=== PATIENT | female | born 1935 | race Caucasian/White ===

== ENCOUNTER 2017-05-06 10:03 | Inpatient (IN) | payer MEDICARE, BC, MEDICAID ==
[2017-05-06 11:02] LABS: #Lymphocytes 1.4 thou/uL (1.20-3.40); #Neutrophils 9.2 thou/uL (1.40-6.50); %Basophils 0.3 % (0.0-1.0); %Eosinophils 0.2 % (0.0-10.0); %Lymphocytes 11.8 % (21.0-51.0); %Monocytes 8.5 % (0.0-10.0); %Neutrophils 79.2 % (42.0-75.0); Hemoglobin 13.9 g/dL (12.0-16.0); Mean Corpuscular HGB CONC 31.4 g/dL (32.0-36.0); Mean Corpuscular Hemoglobin 28.8 pg (27.0-31.0); Mean Corpuscular Volume 91.8 fl (81.0-99.0); Mean Platelet Volume 7.9 fL (7.4-10.4); Platelet Count 253 thou/uL (130-400); RBC Distribution Width 14.2 % (11.5-14.5); Red Blood Cell (RBC) Count 4.82 mill/uL (4.20-5.40); White Blood Cell (WBC) Count 11.6 thou/uL (4.8-10.8)
[2017-05-06 11:11] LABS: Bilirubin Negative (Negative); Blood, Urine Trace (Negative); Clarity Cloudy (Clear); Glucose, Urine (Dipstick) Negative (Negative); Leukocyte Moderate (Negative); Nitrite Positive (Negative); Protein, Urine (Dipstick) 30 mg/dL (Neg-Trace); Urobilinogen 0.2 mg/dL (0.2-1.0); pH, Urine 7.5 (5.0-9.0)
[2017-05-06 11:20] LABS: Anion Gap 16 mmol/L (10-20); BUN (Urea Nitrogen) 21 mg/dL (9.8-20.1); CK (CPK) 26 U/L (29-168); Calc. Creatinine Clearance 0 mL/min (70-130); Calcium 11.3 mg/dL (7.8-10.44); Carbon Dioxide 29 mmol/L (23-31); Chloride 101 mmol/L (98-107); Estimated GFR-MDRD 49; Glucose 124 mg/dL (83-110); Potassium 3.6 mmol/L (3.5-5.1); Sodium 142 mmol/L (136-145)
[2017-05-06 11:23] LABS: CKMB 1.4 ng/mL (0-6.6); Troponin I 0.033 ng/mL (< 0.028)
[2017-05-06 11:25] LABS: Bacteria/HPF 4+ HPF (None Seen); Crystals/HPF 1+ AMORPH PHOS HPF (Negative); Hyaline Casts/LPF NONE SEEN LPF (0-3 Hyaline); Squamous Epithelial 0-3 HPF (0-3)
--- NOTE | 2017-05-06 11:37 | RAD ---
RADIOGRAPH CHEST 1 VIEW: HISTORY: An 82-year-old female with lethargy. FINDINGS: There is cardiomegaly. The thoracic aorta is tortuous and ectatic. There is no evidence of air space density, pulmonary edema, or pneumothorax. The lateral costophrenic angles are sharp. There is a d ual-lead left subclavian pacemaker. Pulmonary vasculature is slightly prominent. IMPRESSION: 1) No acute pulmonary findings. 2) Cardiomegaly without overt congestive heart failure. 3) Ectasia of thoracic aorta. 4) Pacemaker. yaima [r] POS: [facility]
[2017-05-06] MEDS ORDERED: cefTRIAXone\\ROCEPHIN 1 GM, Syringe 0.4 ML in Sterile Water 9.6 ML SLOW IVP SCH (12:30)
[2017-05-06] MEDS ORDERED: Oseltamivir 75 MG CAP PO SCH (12:30)
[2017-05-06 15:28] LABS: Lactic Acid 1.4 mmol/L (0.5-2.2)
[2017-05-06 15:36] LABS: Troponin I 0.051 ng/mL (< 0.028)
[2017-05-06] MEDS ORDERED: hydrALAZINE 20 MG/ML VIAL ONE (15:56)
[2017-05-06] MEDS ORDERED: HYDROcodone/Acetaminophen 5/325 mg Tablet PO PRN (16:43)
[2017-05-06] MEDS ORDERED: Chloraseptic Spray 180 ml Bottle PO PRN (16:43)
[2017-05-06] MEDS ORDERED: Ondansetron HCl/PF 4 MG/2 ML Vial IVP PRN (16:43)
[2017-05-06] MEDS ORDERED: hydrALAZINE 20 MG/ML VIAL SLOW IVP PRN (16:43)
[2017-05-06] MEDS ORDERED: Zolpidem Tartrate 5 MG TAB PO PRN (16:43)
[2017-05-06] MEDS ORDERED: Acetaminophen 325 MG TAB PO PRN (16:43)
[2017-05-06] MEDS ORDERED: Loperamide HCl 2 MG CAP PO PRN (16:43)
[2017-05-06] MEDS ORDERED: Guaifenesin DM 100-10/5 ML UDCUP PO PRN (16:43)
[2017-05-06] MEDS ORDERED: Milk Of Magnesia 30 ML UDCUP PO PRN (16:43)
[2017-05-06] MEDS ORDERED: cefTRIAXone\\ROCEPHIN 1 GM in Sodium Chloride 0.9% 100 ML IVPB SCH (16:43)
[2017-05-06 17:56] LABS: Troponin I 0.037 ng/mL (< 0.028)
[2017-05-06] MEDS: Oseltamivir 75 MG CAP PO SCH (20:48)
[2017-05-06] MEDS: Donepezil HCl 10 MG TAB PO SCH (20:49)
[2017-05-06] MEDS: Metoprolol Tartrate 100 MG TAB PO SCH (20:49)
[2017-05-06] MEDS: Famotidine 20 MG TAB PO SCH (20:49)
--- NOTE | 2017-05-06 23:12 | HP ---
DATE OF ADMISSION: 05/06/2017 REASON FOR ADMISSION: Altered mental status. PRIMARY CARE PHYSICIAN: Dr. Soniya Alanis. HISTORY OF PRESENT ILLNESS: This is an 82-year-old female with a history of CHF, peripheral vascular disease, hypertension, skin cancer, who came to the hospital with altered mentation. No family memb er is available. She was transferred from a snf with the above complaints and patient was e valuated. The patient cannot give history. She was found to have pyuria and possible UTI and starte d on antibiotics. She was also flu positive and is being admitted to the hospital. Patient last paddy e was discharged from the hospital and was DNR per the previous records. PAST MEDICAL HISTORY: Positive for hypertension, skin cancer, peripheral vascular disease, CHF, and iron deficiency anemia, osteoporosis, dementia. PAST SURGICAL HISTORY: Hysterectomy. HOME MEDICATIONS: Aspirin 81 mg daily, Claritin 10 mg daily, ferrous sulfate 325 once a day, Lasix 4 0 mg daily, 60 mg once a day, vitamin D3 1000 units 1 p.o. daily, cilostazol 100 mg mg b.i.d. ALLERGIES: No known drug allergies. SOCIAL HISTORY: She lives in a snf. Past history of tobacco use. No alcohol or illicit dr ug abuse. No tobacco use currently. FAMILY HISTORY: No history of any kidney disease. REVIEW OF SYSTEMS: Could not be obtained due to altered mentation and possible dementia. PHYSICAL EXAMINATION: GENERAL: Elderly female, very lethargic. VITAL SIGNS: Temperature 99.6, pulse 90, respirations 20, blood pressure 177/104. HEENT: Atraumatic, normocephalic. NECK: Supple. . CARDIOVASCULAR: S1, S2 heard. RESPIRATORY: Clear. ABDOMEN: Soft. MUSCULOSKELETAL: No tenderness. No edema. DERMATOLOGIC: . NEUROLOGIC: Somnolent and unresponsive. PSYCHIATRIC: Not assessed. LABORATORY AND X-RAY FINDINGS: WBC 11.6, hemoglobin is 13.9, platelets 253, potassium 3.6, BUN 21, c reatinine 1.2, troponin I 0.03. Urine with pyuria. Chest x-ray was unremarkable. No acute pulmonar y . ASSESSMENT AND PLAN: 1. Altered mentation, most likely from urinary tract infection . Plan is to start on Rocephin. Check urine culture, blood culture, and we will follow. 2. History of congestive heart failure. No acute events. We will continue on Lasix p.o. daily if t olerated. 3. Edema, controlled. 4. Hypertension, stable, continue home medications. 5. Influenza A. Continue on Tamiflu 75 mg p.o. b.i.d. 6. Mild leukocytosis. 7. Elevated BNP, most likely she does have elevated BNP. Chest x-ray with no acute findings. 8. Mildly elevated troponin. 9. Dementia. 10. Code status: DNR/DNI per previous records, made clarification. 11. Selected home medications. 12. P.r.n. order set. The patient will be admitted for close monitoring and continue antibiotics. Further decisions will b e made based on the clinical course.
[2017-05-07 05:22] LABS: #Lymphocytes 1.3 thou/uL (1.20-3.40); #Monocytes 1.1 thou/uL (0.11-0.59); #Neutrophils 6.4 thou/uL (1.40-6.50); %Basophils 0.2 % (0.0-1.0); %Eosinophils 0.1 % (0.0-10.0); %Lymphocytes 14.5 % (21.0-51.0); %Monocytes 12.9 % (0.0-10.0); %Neutrophils 72.4 % (42.0-75.0); Mean Corpuscular HGB CONC 31.4 g/dL (32.0-36.0); Mean Corpuscular Hemoglobin 28.7 pg (27.0-31.0); Mean Corpuscular Volume 91.6 fl (81.0-99.0); Mean Platelet Volume 8.5 fL (7.4-10.4); Platelet Count 230 thou/uL (130-400); RBC Distribution Width 14.2 % (11.5-14.5); Red Blood Cell (RBC) Count 4.53 mill/uL (4.20-5.40); White Blood Cell (WBC) Count 8.9 thou/uL (4.8-10.8)
[2017-05-07 05:34] LABS: Anion Gap 14 mmol/L (10-20); BUN (Urea Nitrogen) 28 mg/dL (9.8-20.1); Calc. Creatinine Clearance 31 mL/min (70-130); Calcium 10.9 mg/dL (7.8-10.44); Carbon Dioxide 32 mmol/L (23-31); Chloride 103 mmol/L (98-107); Estimated GFR-MDRD 45; Glucose 113 mg/dL (83-110); Potassium 3.5 mmol/L (3.5-5.1); Sodium 145 mmol/L (136-145)
[2017-05-07] MEDS ORDERED: Furosemide 40 MG TAB PO SCH (07:30)
[2017-05-07] MEDS ORDERED: FLU VACC TS2017-18 (>65YR) 0.5 ML SYRINGE IM ONE (09:00)
[2017-05-07] MEDS: Enoxaparin Sodium 30 MG/0.3 ML SYRINGE SC SCH (10:04)
[2017-05-07] MEDS: Famotidine 20 MG TAB PO SCH ×2 (10:04→21:43)
[2017-05-07] MEDS: Oseltamivir 75 MG CAP PO SCH ×2 (10:05→21:44)
[2017-05-07] MEDS: Aspirin 81 mg Enteric Coated Tablet PO SCH (10:05)
[2017-05-07] MEDS: Metoprolol Tartrate 100 MG TAB PO SCH ×2 (10:05→21:43)
--- NOTE | 2017-05-07 11:28 | PDOC.PN ---
- Subjective Encounter Start Date: 05/07/17 Encounter Start Time: 11:26 Patient seen and examined. No new complaints. No overnight events. more alert today. - Objective Resuscitation Status: Resuscitation Status DNR:Do Not Resuscitate MAR Reviewed: Yes Vital Signs & Weight: Vital Signs (12 hours) Temp Pulse Resp BP Pulse Ox 05/07/17 07:15 98.2 F 70 14 143/94 H 94 L 05/07/17 04:49 98.4 F 64 16 117/74 98 05/07/17 00:24 99.8 F H 64 16 121/77 96 Weight Weight 119 lb 14.903 oz I&O: 05/06/17 05/07/17 05/08/17 06:59 06:59 06:59 Intake Total 100 Balance 100 Result Diagrams: 05/07/17 04:44 05/07/17 04:44 Phys Exam - Physical Examination Constitutional: NAD HEENT: sclera anicteric Neck: supple Respiratory: no wheezing, no rales Cardiovascular: RRR Gastrointestinal: soft Musculoskeletal: no edema Neurological: non-focal Deviation from normal: lethargic but better Skin: no rash Dx/Plan (1) Flu Code(s): J11.1 - FLU DUE TO UNIDENTIFIED INFLUENZA VIRUS W OTH RESP MANIFEST Status: Acute (2) Altered mental status Code(s): R41.82 - ALTERED MENTAL STATUS, UNSPECIFIED Status: Acute (3) RICK (acute kidney injury) Code(s): N17.9 - ACUTE KIDNEY FAILURE, UNSPECIFIED Status: Acute (4) UTI (urinary tract infection) Status: Acute Qualifiers: - Plan cont current plan of care, continue antibiotics, PT/OT, DVT proph w/lovenox * . continue rocephin more alert today f/u culture continue tamiflu stop lasix gentle hydration AM labs.
[2017-05-07] MEDS ORDERED: Sodium Chloride 0.9% 500 ML IV SCH (11:30)
[2017-05-07] MEDS ORDERED: cefTRIAXone\\ROCEPHIN 1 GM, Syringe 0.4 ML in Sterile Water 9.6 ML SLOW IVP SCH (14:00)
[2017-05-07] MEDS: Donepezil HCl 10 MG TAB PO SCH (21:43)
[2017-05-07 23:13] VITALS: BMI 21.2
[2017-05-08 06:21] LABS: #Basophils 0.1 thou/uL (0.0-0.2); #Eosinphils 0.1 thou/uL (0.0-0.7); #Lymphocytes 1.8 thou/uL (1.20-3.40); #Monocytes 0.8 thou/uL (0.11-0.59); #Neutrophils 3.6 thou/uL (1.40-6.50); %Basophils 1.3 % (0.0-1.0); %Eosinophils 1.2 % (0.0-10.0); %Lymphocytes 27.9 % (21.0-51.0); %Monocytes 13.1 % (0.0-10.0); %Neutrophils 56.6 % (42.0-75.0); Hemoglobin 12.2 g/dL (12.0-16.0); Mean Corpuscular HGB CONC 31.5 g/dL (32.0-36.0); Mean Corpuscular Volume 92.1 fl (81.0-99.0); Mean Platelet Volume 8.5 fL (7.4-10.4); Platelet Count 209 thou/uL (130-400); RBC Distribution Width 14.1 % (11.5-14.5); Red Blood Cell (RBC) Count 4.22 mill/uL (4.20-5.40); White Blood Cell (WBC) Count 6.3 thou/uL (4.8-10.8)
[2017-05-08 06:34] LABS: Anion Gap 11 mmol/L (10-20); BUN (Urea Nitrogen) 26 mg/dL (9.8-20.1); Calc. Creatinine Clearance 42 mL/min (70-130); Calcium 10.1 mg/dL (7.8-10.44); Carbon Dioxide 30 mmol/L (23-31); Chloride 102 mmol/L (98-107); Estimated GFR-MDRD 64; Glucose 86 mg/dL (83-110); Potassium 3.1 mmol/L (3.5-5.1); Sodium 140 mmol/L (136-145)
[2017-05-08] MEDS: Famotidine 20 MG TAB PO SCH ×2 (09:03→22:17)
[2017-05-08] MEDS: Oseltamivir 75 MG CAP PO SCH ×2 (09:03→22:17)
[2017-05-08] MEDS: Aspirin 81 mg Enteric Coated Tablet PO SCH (09:03)
[2017-05-08] MEDS: Metoprolol Tartrate 100 MG TAB PO SCH ×2 (09:04→22:17)
[2017-05-08] MEDS: Enoxaparin Sodium 30 MG/0.3 ML SYRINGE SC SCH (09:04)
[2017-05-08] MEDS ORDERED: Meropenem 1 GM in Sodium Chloride 0.9% 100 ML IVPB SCH (13:00)
[2017-05-08] MEDS ORDERED: Meropenem 1 GM in Sterile Water 20 ML SLOW IVP SCH (14:00)
--- NOTE | 2017-05-08 17:04 | PDOC.PN ---
- Subjective Encounter Start Date: 05/08/17 Encounter Start Time: 17:02 more alert and awake eating no f/c no n/v - Objective Resuscitation Status: Resuscitation Status DNR:Do Not Resuscitate MAR Reviewed: Yes Vital Signs & Weight: Vital Signs (12 hours) Temp Pulse Resp BP Pulse Ox 05/08/17 15:50 59 L 05/08/17 15:00 98.1 F 44 L 15 139/61 96 05/08/17 11:00 98.1 F 60 18 144/95 H 94 L 05/08/17 07:46 98.2 F 59 L 16 135/53 L 97 05/08/17 07:45 98.2 F 59 L 16 97 Weight Weight 119 lb 14.903 oz I&O: 05/07/17 05/08/17 05/09/17 06:59 06:59 06:59 Intake Total 100 1000 Balance 100 1000 Result Diagrams: 05/08/17 05:15 05/08/17 05:15 Phys Exam - Physical Examination Constitutional: NAD HEENT: PERRLA Neck: no JVD Respiratory: no rales Cardiovascular: no significant murmur Gastrointestinal: non-tender Musculoskeletal: pulses present Neurological: moves all 4 limbs Psychiatric: A&O x 3 Dx/Plan (1) Altered mental status Code(s): R41.82 - ALTERED MENTAL STATUS, UNSPECIFIED Status: Acute (2) Flu Code(s): J11.1 - FLU DUE TO UNIDENTIFIED INFLUENZA VIRUS W OTH RESP MANIFEST Status: Acute (3) RICK (acute kidney injury) Code(s): N17.9 - ACUTE KIDNEY FAILURE, UNSPECIFIED Status: Acute (4) Tachycardia Code(s): R00.0 - TACHYCARDIA, UNSPECIFIED Status: Resolved Comment: ECHO shows preserved EF (5) UTI (urinary tract infection) Status: Acute Qualifiers: Comment: proteus - Plan * replace potassium * consult dr vega for rec's on duration of treatement * start merropenem * pt/ot
--- NOTE | 2017-05-08 17:06 | PQF ---
CLINICAL DOCUMENTATION IMPROVEMENT CLARIFICATION FORM: ICD-10 Updated PLEASE DO AN ADDENDUM TO THE PROGRESS NOTE WITH ANY DOCUMENTATION UPDATES OR ADDITIONS AND CARRY THROUGH TO DC SUMMARY. THANK YOU. DATE: 05/08/17 ATTN: Dr. Moreno Please exercise your independent, professional judgment in responding to the clarification form. Clinical indicators are provided on the bottom of this form for your review Please check appropriate box(s): [ ] Encephalopathy: Type: [ ] Acute [ ] Subacute [ ] Chronic Etiology: [ ] Metabolic [ ] Toxic [ ] Septic [ ] Unspecified [ ] in the setting of underlying dementia [ ] Other (please specify) [ ] Other diagnosis [ ] Unable to determine In addition, please specify: Present on Admission (POA): [ ] Yes [ ] No [ ] Unable to determine For continuity of documentation, please document condition throughout progress notes and discharge summary. Thank You. CLINICAL INDICATORS - SIGNS / SYMPTOMS / LABS H&P: ALTERED MENTATION, MOST LIKELY FROM URINARY TRACT INFECTION. PN 05/07/17: DX: FLU AMS RICK UTI MORE ALERT TODAY RISKS: H&P: AGE 82. LIVES IN A SHELTER. INFLUENZA A. DEMENTIA. HX OF CHF, HTN. MILD LEUKOCYTOSIS. TREATMENT: PN 05/07/17: CONTINUE ROCEPHIN; F/U CULTURE; CONTINUE TAMIFLU Thank you, Nila (This form is maintained as a part of the permanent medical record) 2015 [employer]. All Rights Reserved Nila Rowe RN, BSN [email or web address] Office: [phone] [facility]
[2017-05-08] MEDS: Potassium Chloride 20 MEQ TAB PO SCH (17:18)
--- NOTE | 2017-05-08 17:41 | CON ---
DATE OF CONSULTATION: 05/08/2017 REASON FOR CONSULTATION: UTI, influenza. HISTORY OF PRESENT ILLNESS: An 82-year-old whom I had seen in 2016, has a history of hypertension an d dementia. She has been [facility] to a jail because of her dementia progression. She has michaels d a history of prior UTIs and this time she was admitted with altered mental status and influenza zhang t was positive for A and she also had abnormal urinalysis and is on anti-influenza medication and ant ibiotics. She is disoriented, is a very pleasant lady, but her cognitive functions really not consis tent with a proper history taking. She denied any pain at this point or dyspnea, coughing intermitte ntly. No abdominal pain, no genitourinary symptoms, no joint symptoms. PAST MEDICAL HISTORY: Prior UTIs, PVD, CHF, anemia, osteoporosis, dementia, hypertension. PAST SURGICAL HISTORY: Hysterectomy. CURRENT MEDICATIONS: Tylenol, [place], Ecotrin, Aricept, Lovenox, Pepcid, Robitussin, Apresoline, lact ulose, Imodium, meropenem, oseltamivir, zolpidem. SOCIAL HISTORY: Former smoker, quit just 3 years before this admission. ALLERGIES: None. FAMILY HISTORY: Noncontributory. PHYSICAL EXAMINATION: VITAL SIGNS: She has been afebrile after the initial low grade temperature elevations. BP 140/95, p ulse 60, respiratory rate 18, O2 sat 94. GENERAL: She appears in no distress. Awake, alert, oriented. No lymphadenopathy. HEENT: Ocular movements are conjugate. Oral cavity with no [place] teeth. NECK: Supple. LUNGS: With coarse breath sounds. HEART: S1 and S2, regular rate. ABDOMEN: Soft, not distended. EXTREMITIES: Moves all extremities equally. No bladder distention. EXTREMITIES: Pulses are 1+ in internal dorsalis pedis. NEUROLOGIC: Plantar responses are flexure. LABORATORY DATA: White cell count was 11.6, down to 6.3. Hemoglobin 13, platelets 209 with neutroph il percentage was 79, down to 56. Sodium was 145 and now 140. Creatinine down from 1.16 to 0.85, ca lcium is down from 10.9 to 10.1. Urinalysis with greater than 50 WBCs. Chest x-ray on admission wit h pacemaker, ectasia of thoracic aorta, no acute pulmonary findings, cardiomegaly. ASSESSMENT: Dementia associated with deterioration in mental status secondary to likely acute influe nza viral infection type A which is the epidemic strain circulating in the area. The urinary tract f indings could reflect colonization plus some element of cystitis. Should be able to discontinue anti microbial therapy and just continue the Tamiflu for the next 3-4 days . I do not see any obvious dinh dence of pneumonia at this point in time.
[2017-05-08] MEDS: Donepezil HCl 10 MG TAB PO SCH (22:16)
[2017-05-09 05:42] LABS: #Basophils 0.1 thou/uL (0.0-0.2); #Lymphocytes 1.7 thou/uL (1.20-3.40); #Monocytes 0.6 thou/uL (0.11-0.59); #Neutrophils 3.7 thou/uL (1.40-6.50); %Basophils 1.3 % (0.0-1.0); %Eosinophils 0.6 % (0.0-10.0); %Lymphocytes 27.2 % (21.0-51.0); %Monocytes 9.8 % (0.0-10.0); %Neutrophils 61.1 % (42.0-75.0); Hemoglobin 12.8 g/dL (12.0-16.0); Mean Corpuscular HGB CONC 32.4 g/dL (32.0-36.0); Mean Corpuscular Hemoglobin 29.7 pg (27.0-31.0); Mean Corpuscular Volume 91.5 fl (81.0-99.0); Platelet Count 245 thou/uL (130-400); RBC Distribution Width 14.3 % (11.5-14.5); Red Blood Cell (RBC) Count 4.31 mill/uL (4.20-5.40); White Blood Cell (WBC) Count 6.1 thou/uL (4.8-10.8)
[2017-05-09 06:17] LABS: Albumin 3.4 g/dL (3.4-4.8); Anion Gap 11 mmol/L (10-20); BUN (Urea Nitrogen) 27 mg/dL (9.8-20.1); BUN/Creatinine Ratio 32.14; Calc. Creatinine Clearance 43 mL/min (70-130); Calcium 10.5 mg/dL (7.8-10.44); Carbon Dioxide 29 mmol/L (23-31); Chloride 105 mmol/L (98-107); Estimated GFR-MDRD 65; Glucose 96 mg/dL (83-110); Sodium 141 mmol/L (136-145)
[2017-05-09] MEDS: Oseltamivir 75 MG CAP PO SCH ×2 (08:28→21:03)
[2017-05-09] MEDS: Aspirin 81 mg Enteric Coated Tablet PO SCH (08:28)
[2017-05-09] MEDS: Famotidine 20 MG TAB PO SCH ×2 (08:29→21:03)
[2017-05-09] MEDS: Potassium Chloride 20 MEQ TAB PO SCH ×2 (08:29→17:16)
[2017-05-09] MEDS: Enoxaparin Sodium 30 MG/0.3 ML SYRINGE SC SCH (08:30)
[2017-05-09] MEDS ORDERED: Metoprolol Tartrate 25 MG TAB PO SCH (09:45)
[2017-05-09] MEDS: Metoprolol Tartrate 100 MG TAB PO SCH (09:56)
--- NOTE | 2017-05-09 11:58 | PDOC.PN ---
- Subjective Encounter Start Date: 05/09/17 Encounter Start Time: 11:56 Patient seen and examined. No new complaints. No overnight events - Objective Resuscitation Status: Resuscitation Status DNR:Do Not Resuscitate MAR Reviewed: Yes Vital Signs & Weight: Vital Signs (12 hours) Temp Pulse Resp BP BP Pulse Ox 05/09/17 07:57 97.7 F 59 L 12 127/92 H 95 05/09/17 07:50 97.7 F 59 L 12 95 05/09/17 04:44 98.8 F 60 16 133/69 144/82 H 95 05/09/17 00:03 98.6 F 55 L 16 145/87 H 98 Weight Weight 119 lb 14.903 oz I&O: 05/08/17 05/09/17 05/10/17 06:59 06:59 06:59 Intake Total 1000 1050 Balance 1000 1050 Result Diagrams: 05/09/17 04:54 05/09/17 04:54 Phys Exam - Physical Examination Constitutional: NAD HEENT: PERRLA Neck: no JVD Cardiovascular: no significant murmur Gastrointestinal: non-tender Musculoskeletal: pulses present Neurological: moves all 4 limbs Psychiatric: A&O x 3 Dx/Plan (1) Altered mental status Code(s): R41.82 - ALTERED MENTAL STATUS, UNSPECIFIED Status: Acute Comment: metabolic encephalopathy (2) Flu Code(s): J11.1 - FLU DUE TO UNIDENTIFIED INFLUENZA VIRUS W OTH RESP MANIFEST Status: Acute (3) RICK (acute kidney injury) Code(s): N17.9 - ACUTE KIDNEY FAILURE, UNSPECIFIED Status: Acute (4) Tachycardia Code(s): R00.0 - TACHYCARDIA, UNSPECIFIED Status: Resolved Comment: ECHO shows preserved EF (5) UTI (urinary tract infection) Status: Acute Qualifiers: Comment: proteus - Plan * continue tamiflu * dr vega rec's appreicated * pt/ot * case mx to help with dc planning
[2017-05-09] MEDS: Metoprolol Tartrate 25 MG TAB PO SCH (21:03)
[2017-05-09] MEDS: Donepezil HCl 10 MG TAB PO SCH (21:03)
[2017-05-10] MEDS: Metoprolol Tartrate 25 MG TAB PO SCH ×2 (09:21→20:58)
[2017-05-10] MEDS: Aspirin 81 mg Enteric Coated Tablet PO SCH (09:21)
[2017-05-10] MEDS: Enoxaparin Sodium 30 MG/0.3 ML SYRINGE SC SCH (09:21)
[2017-05-10] MEDS: Famotidine 20 MG TAB PO SCH ×2 (09:21→20:58)
[2017-05-10] MEDS: Oseltamivir 75 MG CAP PO SCH ×2 (09:22→20:58)
--- NOTE | 2017-05-10 14:56 | PDOC.PN ---
- Subjective Encounter Start Date: 05/10/17 Encounter Start Time: 14:55 Patient seen and examined. No new complaints. No overnight events - Objective Resuscitation Status: Resuscitation Status DNR:Do Not Resuscitate MAR Reviewed: Yes Vital Signs & Weight: Vital Signs (12 hours) Temp Pulse Resp BP Pulse Ox 05/10/17 11:55 97.6 F 60 14 142/84 H 96 05/10/17 08:00 97.6 F 60 12 97 05/10/17 07:59 97.6 F 60 12 156/90 H 97 05/10/17 04:00 98 F 60 16 147/88 H 97 Weight Weight 119 lb 14.903 oz I&O: 05/09/17 05/10/17 05/11/17 06:59 06:59 06:59 Intake Total 1050 950 Balance 1050 950 Result Diagrams: 05/09/17 04:54 05/09/17 04:54 Phys Exam - Physical Examination Constitutional: NAD HEENT: PERRLA Neck: no JVD Respiratory: no wheezing Cardiovascular: no significant murmur Gastrointestinal: non-tender Musculoskeletal: pulses present Neurological: normal sensation Psychiatric: A&O x 3 Dx/Plan (1) Altered mental status Code(s): R41.82 - ALTERED MENTAL STATUS, UNSPECIFIED Status: Resolved Comment: metabolic encephalopathy (2) Flu Code(s): J11.1 - FLU DUE TO UNIDENTIFIED INFLUENZA VIRUS W OTH RESP MANIFEST Status: Acute (3) RICK (acute kidney injury) Code(s): N17.9 - ACUTE KIDNEY FAILURE, UNSPECIFIED Status: Acute (4) Tachycardia Code(s): R00.0 - TACHYCARDIA, UNSPECIFIED Status: Resolved Comment: ECHO shows preserved EF (5) UTI (urinary tract infection) Status: Acute Qualifiers: Comment: proteus - Plan * doing better * possible d/c to [place] in am
[2017-05-10] MEDS: Donepezil HCl 10 MG TAB PO SCH (20:58)
[2017-05-11] MEDS: Aspirin 81 mg Enteric Coated Tablet PO SCH (08:43)
[2017-05-11] MEDS: Metoprolol Tartrate 25 MG TAB PO SCH (08:43)
[2017-05-11] MEDS: Oseltamivir 75 MG CAP PO SCH (08:43)
[2017-05-11] MEDS: Enoxaparin Sodium 30 MG/0.3 ML SYRINGE SC SCH (08:43)
[2017-05-11] MEDS: Famotidine 20 MG TAB PO SCH (08:43)
--- NOTE | 2017-05-11 11:25 | PDOC.PN ---
- Subjective Encounter Start Date: 05/11/17 Encounter Start Time: 11:24 Patient seen and examined. No new complaints. No overnight events - Objective Resuscitation Status: Resuscitation Status DNR:Do Not Resuscitate MAR Reviewed: Yes Vital Signs & Weight: Vital Signs (12 hours) Temp Pulse Resp BP Pulse Ox 05/11/17 08:00 98.3 F 61 14 153/84 H 94 L 05/11/17 07:40 98.3 F 61 14 94 L 05/11/17 04:00 98.5 F 59 L 16 150/82 H 95 Weight Weight 119 lb 14.903 oz I&O: 05/10/17 05/11/17 05/12/17 06:59 06:59 06:59 Intake Total 950 600 Balance 950 600 Result Diagrams: 05/09/17 04:54 05/09/17 04:54 Phys Exam - Physical Examination Constitutional: NAD HEENT: PERRLA Neck: no JVD Respiratory: no rales Cardiovascular: no significant murmur Gastrointestinal: non-tender Musculoskeletal: pulses present Neurological: moves all 4 limbs Psychiatric: A&O x 3 Dx/Plan (1) Altered mental status Code(s): R41.82 - ALTERED MENTAL STATUS, UNSPECIFIED Status: Resolved Comment: metabolic encephalopathy (2) Flu Code(s): J11.1 - FLU DUE TO UNIDENTIFIED INFLUENZA VIRUS W OTH RESP MANIFEST Status: Acute (3) RICK (acute kidney injury) Code(s): N17.9 - ACUTE KIDNEY FAILURE, UNSPECIFIED Status: Acute (4) Tachycardia Code(s): R00.0 - TACHYCARDIA, UNSPECIFIED Status: Resolved Comment: ECHO shows preserved EF (5) UTI (urinary tract infection) Status: Acute Qualifiers: Comment: proteus - Plan * doing well * d/c to [place] *
--- NOTE | 2017-05-11 15:33 | EKG ---
Test Reason : Blood Pressure : / mmHG Vent. Rate : 083 BPM Atrial Rate : 085 BPM P-R Int : 000 ms QRS Dur : 146 ms QT Int : 436 ms P-R-T Axes : 000 269 093 degrees QTc Int : 512 ms Electronic ventricular pacemaker Confirmed by SCOOTER WEAVER ([id number]), news video editor CAROLINE REYES ([id number]) on 05/11/2017 3:33:04 PM Referred By: Confirmed By:SCOOTER WEAVER
[2017-05-11 17:06] VITALS: BP 163/90; TEMP 98.1
--- NOTE | 2017-05-11 19:11 | DIS ---
DATE OF ADMISSION: 05/06/2017 DATE OF DISCHARGE: 05/11/2017 DIAGNOSES ON DISCHARGE: 1. Altered mental status secondary to metabolic encephalopathy in addition to the flu. 2. Hypertension. 3. Influenza A infection, resolved. 4. Mild cystitis, resolved. 5. Mild elevation of troponin, stable. 6. Dementia, stable. 7. The patient is DNR/DNI according to previous records. 8. History of hypertension. 9. Mild leukocytosis, which has resolved. DISCHARGE MEDICATIONS: Same as admit medications. PHARMACEUTICAL REPRESENTATIVE ON THE CASE: Giorgi Deutsch MD HOSPITAL COURSE: This is an 82-year-old pleasant lady who came into the hospital with altered mental state. She was diagnosed to have the flu. She had mild cystitis. She was initially treated with a ntibiotics and Tamiflu. She responded to this treatment. Dr. Deutsch was consulted as well. He thoug ht it was more of the flu and he stopped the antibiotics thinking it was colonization of the bacteria in the urine. The patient did improve after the antibiotics were stopped. The patient right now is medically stable to be discharged back to the halfway with outpatient followup with PCP. She i s asked to come back to the emergency room in case symptoms recur. Total time for this discharge took 35 minutes.
== END 2017-05-11 17:42 | DRG 193 ==
LOC: ERS 10:03 → SURG B 16:28
PROVIDERS: ADMIT Internal Medicine Nephrology; ATTEND Internal Medicine Nephrology
DX: J10.1 Influenza due to other identified influenza virus with other respiratory manifestations (principal); G93.41 Metabolic encephalopathy; N17.9 Acute kidney failure, unspecified; F03.90 Unspecified dementia, unspecified severity, without behavioral disturbance, psychotic disturbance, mood disturbance, and anxiety; I11.9 Hypertensive heart disease without heart failure; I73.9 Peripheral vascular disease, unspecified; B96.4 Proteus (mirabilis) (morganii) as the cause of diseases classified elsewhere; N30.90 Cystitis, unspecified without hematuria; M81.0 Age-related osteoporosis without current pathological fracture; R74.8 Abnormal levels of other serum enzymes; R00.0 Tachycardia, unspecified; Z66 Do not resuscitate; Z85.828 Personal history of other malignant neoplasm of skin; Z87.891 Personal history of nicotine dependence
CPT/HCPCS: 36415; 51701; 71045; 80048; 80069; 81003; 81015; 82550; 82553; 83605; 83735; 83880; 84484; 85025; 87040; 87077; 87086; 87186; 87804; 93005; 96374; 96375; A4216; A4353; G8978-GP-CM; G8979-GP-CM; G8980-GP-CM; G8987-GO-CL; G8988-GO-CL; G8989-GO-CL; G8996-GN-CK; G8997-GN-CJ; J0360; J0696; J1650; J2185

== ENCOUNTER 2018-07-10 18:27 | Inpatient (IN) | payer MEDICARE, BC, MEDICAID ==
[2018-07-10] MEDS ORDERED: Acetaminophen 650 MG Suppository ONE (18:51)
[2018-07-10 19:36] LABS: Bilirubin Negative (Negative); Blood, Urine Moderate (Negative); Clarity CLOUDY (Clear); Glucose, Urine (Dipstick) Negative (Negative); Leukocyte Large (Negative); Nitrite Positive (Negative); Protein, Urine (Dipstick) 100 mg/dL (Neg-Trace); Urobilinogen 0.2 mg/dL (0.2-1.0); pH, Urine 5.5 (5.0-9.0)
[2018-07-10 19:39] LABS: Hemoglobin 13.6 g/dL (12.0-16.0); Mean Corpuscular HGB CONC 31.8 g/dL (32.0-36.0); Mean Corpuscular Hemoglobin 29.5 pg (27.0-31.0); Mean Corpuscular Volume 92.9 fL (78.0-98.0); Mean Platelet Volume 8.8 fL (7.4-10.4); Platelet Count 261 thou/uL (130-400); RBC Distribution Width 14.3 % (11.5-14.5); White Blood Cell (WBC) Count 17.8 thou/uL (4.8-10.8)
[2018-07-10 19:41] LABS: Bacteria/HPF 4+ HPF (None Seen); Hyaline Casts/LPF 4-6 HYALINE CAST LPF (0-3 Hyaline); Pathc Cast-AUWi Flag 1.08 (0-2.49); Squamous Epithelial 0-3 HPF (0-3)
[2018-07-10 19:45] LABS: Acetaminophen Less than 6.0 mcg/mL (10.0-30.0); Alcohol Less than 10 mg/dL (Less than 10); Salicylate Less than 8.0 mg/dL (15.0-30.0)
[2018-07-10 19:46] LABS: ALT (SGPT) 16 U/L (8-55); AST (SGOT) 24 U/L (5-34); Albumin 3.6 g/dL (3.4-4.8); Alkaline Phosphatase 99 U/L (40-150); Anion Gap 15 mmol/L (10-20); BUN (Urea Nitrogen) 28 mg/dL (9.8-20.1); Bilirubin, Total 0.4 mg/dL (0.2-1.2); Calc. Creatinine Clearance 0 mL/min (70-130); Calcium 10.3 mg/dL (7.8-10.44); Carbon Dioxide 22 mmol/L (23-31); Chloride 107 mmol/L (98-107); Estimated GFR-MDRD 50; Globulin 3.1 g/dL (2.4-3.5); Glucose 175 mg/dL (83-110); Lipase 24 U/L (8-78); Potassium 3.5 mmol/L (3.5-5.1); Protein, Total 6.7 g/dL (6.0-8.3); Sodium 140 mmol/L (136-145)
--- NOTE | 2018-07-10 19:51 | RAD ---
CHEST ONE VIEW 07/10/18 COMPARISON: 05/06/17 HISTORY: Sepsis. FINDINGS: Atherosclerosis and elongation of the aorta. Enlarged cardiac silhouette. Pulmonary vessels and hilum are normal. Costophrenic angles are clear. Chronic changes, without consolidation or mass. No pneumo thorax or acute osseous abnormalities. Stable scoliotic curvature of the spine. IMPRESSION: No acute cardiopulmonary process. POS: [facility]
[2018-07-10 19:52] LABS: Yeast-AUWi Flag 40.1 (0-25.0)
[2018-07-10 19:53] LABS: Band 5 % (5-11); Lymphocytes 3 % (21-51); MDiff Complete? YES; Monocytes 2 % (0-10); Neutrophil 88 % (42-75); Platelet Morphology Comment Appears Adequate
[2018-07-10 19:56] LABS: Amphetamine Not Detected (NotDetected); Barbiturates Screen Not Detected (NotDetected); Benzodiazepine Screen Not Detected (NotDetected); Cocaine Metabolite Screen Not Detected (NotDetected); Medtox Control Line Valid? VALID (VALID); Medtox Reader # READER 1; Methadone Not Detected (NotDetected); Methamphetamine Not Detected (NotDetected); Opiate Screen Not Detected (NotDetected); Oxycodone Screen Not Detected (NotDetected); Phencyclidine (PCP) Not Detected (NotDetected); THC/Cannabinoid Screen Not Detected (NotDetected); Tricyclic Screen Not Detected (NotDetected)
[2018-07-10 20:03] LABS: Yeast-All Forms None Seen HPF (None Seen)
--- NOTE | 2018-07-10 20:11 | CT ---
HEAD CT WITHOUT CONTRAST: 07/10/18 COMPARISON: 01/29/16. HISTORY: Altered mental status. Weakness. Unresponsive patient. FINDINGS: No parenchymal hemorrhage. No extra-axial hematoma. No midline shift. Basilar cisterns are patent. Ag e appropriate atrophy. Cortical haddad-white matter differentiation is preserved. No evidence of hydrocephalus. Chronic small vessel ischemic changes of the white matter are normal. C alvarium is intact. Adequate aeration of the sinuses and mastoid air cells. Cavernous carotid atheros clerosis is identified. IMPRESSION: No acute intracranial process. POS: [facility]
[2018-07-10] MEDS ORDERED: cefTRIAXone\\ROCEPHIN 2 GM VIAL ONE (20:47)
[2018-07-10] MEDS ORDERED: Ondansetron ODT 4 MG TAB SL PRN (23:15)
[2018-07-10] MEDS ORDERED: Acetaminophen 325 MG TAB PO PRN (23:15)
[2018-07-10] MEDS ORDERED: Ondansetron PF 4 MG/2 ML Vial IVP PRN (23:15)
[2018-07-11 00:06] VITALS: BMI 20.7
[2018-07-11 00:11] LABS: Lactic Acid 1.2 mmol/L (0.5-2.2)
[2018-07-11] MEDS ORDERED: Ibuprofen 200 MG TAB PO PRN (04:12)
[2018-07-11] MEDS ORDERED: Sodium Chloride 0.9% 1,000 ML IV SCH (04:12)
[2018-07-11] MEDS ORDERED: Acetaminophen 500 MG TAB PO PRN (04:12)
[2018-07-11] MEDS ORDERED: Ondansetron PF 4 MG/2 ML Vial IVP PRN (04:12)
[2018-07-11] MEDS ORDERED: Ondansetron ODT 4 MG TAB PO PRN (04:12)
[2018-07-11] MEDS: Sodium Chloride 0.9% 1,000 ML IV SCH ×3 (04:56→22:51)
--- NOTE | 2018-07-11 05:27 | HP ---
PRIMARY CARE PROVIDER: Dr. Cooper. CHIEF COMPLAINT: Altered mental status. HISTORY OF PRESENT ILLNESS: This is an 83-year-old female, who presents to [facility] Emergency Department in transfer from [facility], where patient is a current resident, after patient was noted less responsive and less verbal and "not acting normally". The history is obtained after review of electronic medical records in the emergency room, as the patient cannot provide a coherent history due to dementia. Patient apparently had been performing normal activities during the day when she started acting different approximately an hour prior to evaluation in the emergency room. No history of falls, injuries, or documented fever. However, patient after arriving in the emergency room was noted febrile with a urinalysis performed showing evidence of infection. Patient was following basic commands in the emergency room, however, was alert and oriented x1. Patient apparently with a history of prior urinary tract infections with Proteus and E. coli species. Patient was also noted with elevated white blood cell count and lactic acid level and treated for urinary tract infection with sepsis. Patient received IV vancomycin and Rocephin as well as intravenous normal saline and Tylenol. PAST MEDICAL HISTORY: 1. Chronic atrial fibrillation. 2. Hypothyroidism. 3. History of skin cancer. 4. Hypertension. 5. Dementia, likely Alzheimer's type. 6. Peripheral vascular disease. 7. Iron-deficiency anemia. 8. Osteoporosis. PAST SURGICAL HISTORY: Status post hysterectomy. CURRENT MEDICATIONS: 1. Enteric-coated aspirin 81 mg p.o. daily. 2. Pletal 100 mg p.o. b.i.d. 3. Aricept 10 mg p.o. at bedtime. 4. Lasix 20 mg p.o. daily. 5. Iron 65 mg p.o. daily. 6. Evista 60 mg p.o. daily. 7. Vitamin D3 of 1000 units p.o. daily. 8. Multivitamin 1 capsule p.o. daily. 9. Lopressor 100 mg p.o. b.i.d. ALLERGIES: NO KNOWN DRUG ALLERGIES. FAMILY HISTORY: No inheritable diseases per patient report. SOCIAL HISTORY: Patient resides at [facility]. No current alcohol, tobacco, or illicit drug use. Ambulates with a rolling walker. REVIEW OF SYSTEMS: Unobtainable due to patient's advanced dementia. PHYSICAL EXAMINATION: VITAL SIGNS: Currently, blood pressure 140/75, pulse 64, respiratory rate 16, temperature 97.9 degrees Fahrenheit, and O2 saturation 99% on 2 L/minute by nasal cannula. GENERAL APPEARANCE: This is an 83-year-old female, alert and responsive, smiling, in no acute distress. HEENT: Pupils are equal, round, reactive to light and accommodation. Extraocular muscles are intact. No scleral icterus. No conjunctival injection. Nares patent. OP is clear. Oral mucosa dry appearing. NECK: Supple. No cervical adenopathy. No thyromegaly. No carotid bruits. No JVD appreciated. Cervical spine with full active and passive range of motion. No meningeal signs noted. CHEST: Lungs are clear to auscultation bilaterally. CARDIOVASCULAR: S1 and S2, without noted murmur, rub, or gallop. ABDOMEN: Rounded, soft with mild tenderness to palpation in the suprapubic region. No palpable mass or guarding. EXTREMITIES: Warm and dry with fair turgor. No clubbing, cyanosis, or asymmetric edema appreciated. Pulses are palpable distally at the dorsalis pedis, posterior tibial, and popliteal arteries bilaterally. Capillary refill less than 2 seconds. NEUROLOGIC EXAM: Weakness noted in bilateral lower extremities. Follows simple commands, with district manager in training strength noted bilaterally equal. Cranial nerves 2 through 12 are grossly intact. No other focal or lateralizing signs appreciated. Patient not observed ambulatory during this exam. PERTINENT LAB AND X-RAY FINDINGS: Sodium 140, potassium 3.5, chloride 107, CO2 of 22, BUN 28, creatinine 1.05, estimated GFR 50, and glucose 175. Lactic acid level ranged between 1.2 to 2.4, and calcium 10.3. LFTs within normal limits. Serum ammonia level 20. Lipase 24. CBC showed a white blood cell count of 17.8, hemoglobin 13.6, hematocrit 42.7, and platelet count 261 with 88% neutrophilia. Urinalysis positive for blood, nitrite, and leukocyte esterase with 50 to [id number]-count wbc's per high-powered field, 4+ bacteria. Urine drug screen dated 07/10/2018, negative. CT of the brain without contrast dated 07/10/2018 showed no acute intracranial process. Portable chest x-ray dated 07/10/2018 by my interpretation shows chronic changes without acute process. ASSESSMENT/PLAN: 1. Sepsis secondary to urinary tract infection. Patient will be admitted to the medical floor. Patient received sepsis protocol in the emergency room with fluid resuscitation. We will continue Rocephin 2 g IV q.24 hours. Continue IV fluids with normal saline at 75 mL/h. Blood and urine cultures pending. 2. Urinary tract infection. See #1 above. Continue Rocephin pending final urine culture results. Continue IV fluids. 3. Acute metabolic encephalopathy secondary to sepsis and urinary tract infection. We will continue supportive management as outlined in #1 and #2. Monitor mental status as infectious process resolves. 4. Acute kidney injury. Continue IV fluids as outlined previously. Avoid nephrotoxic agents. Limit contrast exposure. 5. Alzheimer's dementia. Continue supportive management. Resume Aricept 10 mg p.o. at bedtime. 6. Prophylaxis. SCDs while in bed. Pepcid 20 mg p.o. b.i.d. PT evaluation in the a.m. 7. Code status. Do not attempt resuscitation confirmed with family members and out of hospital DNR status. Surrogate medical decision maker is the patient's son. Job ID: [id number]
[2018-07-11 05:35] LABS: Band 4 % (5-11); Hemoglobin 12.8 g/dL (12.0-16.0); Lymphocytes 15 % (21-51); MDiff Complete? YES; Mean Corpuscular Hemoglobin 27.8 pg (27.0-31.0); Mean Corpuscular Volume 89.7 fL (78.0-98.0); Mean Platelet Volume 8.7 fL (7.4-10.4); Monocytes 1 % (0-10); Neutrophil 80 % (42-75); Platelet Count 220 thou/uL (130-400); Platelet Morphology Comment Appears Adequate; RBC Distribution Width 14.4 % (11.5-14.5); Red Blood Cell (RBC) Count 4.62 mill/uL (4.20-5.40); White Blood Cell (WBC) Count 18.1 thou/uL (4.8-10.8)
[2018-07-11 05:38] LABS: Anion Gap 16 mmol/L (10-20); BUN (Urea Nitrogen) 21 mg/dL (9.8-20.1); Calc. Creatinine Clearance 43 mL/min (70-130); Calcium 9.8 mg/dL (7.8-10.44); Carbon Dioxide 18 mmol/L (23-31); Chloride 113 mmol/L (98-107); Estimated GFR-MDRD 68; Glucose 96 mg/dL (83-110); Potassium 3.5 mmol/L (3.5-5.1); Sodium 143 mmol/L (136-145)
[2018-07-11] MEDS: Cilostazol 100 MG TAB PO SCH ×2 (05:59→17:43)
[2018-07-11] MEDS ORDERED: Prevnar 13-Val Conj/PF 0.5 ML SYRINGE IM ONE (09:00)
[2018-07-11] MEDS: Famotidine 20 MG TAB PO SCH ×2 (09:11→20:29)
[2018-07-11] MEDS: Aspirin 81 mg Enteric Coated Tablet PO SCH (09:12)
[2018-07-11] MEDS: Ferrous Sulfate 325 MG TAB PO SCH (09:12)
[2018-07-11] MEDS: Metoprolol Tartrate 100 MG TAB PO SCH ×2 (09:12→20:29)
[2018-07-11] MEDS: MEROPENEM 1 GM/50 ML 1 GM in Premix Bag 1 BAG IVPB SCH ×2 (11:51→17:43)
[2018-07-11] MEDS ORDERED: Vancomycin HCl 1 GM in Premix Bag 1 BAG IVPB SCH (18:15)
--- NOTE | 2018-07-11 19:28 | PDOC.EVN ---
Event Note - Event Note Event Note: pt seen and examined.chart reviewed Change ABx to meropenam as prior urine Cx were MDR. 1 dose Vanco given 1/2 +ve blood Cx.artem a contaminant reduce IVF add ot ,PT am labs HD stable. home meds reviewed and restarted
[2018-07-11] MEDS: Donepezil HCl 5 MG TAB PO SCH (20:29)
[2018-07-11] MEDS ORDERED: cefTRIAXone\\ROCEPHIN 2 GM in Sodium Chloride 0.9% 100 ML IVPB SCH (21:00)
[2018-07-12] MEDS: MEROPENEM 1 GM/50 ML 1 GM in Premix Bag 1 BAG IVPB SCH ×2 (00:17→11:25)
[2018-07-12] MEDS: Sodium Chloride 0.9% 1,000 ML IV SCH ×3 (00:21→20:46)
[2018-07-12] MEDS: Cilostazol 100 MG TAB PO SCH ×2 (05:42→16:04)
[2018-07-12 07:05] LABS: #Basophils 0.1 thou/uL (0.0-0.2); #Eosinphils 0.2 thou/uL (0.0-0.7); #Lymphocytes 1.3 thou/uL (1.20-3.40); #Monocytes 0.7 thou/uL (0.11-0.59); #Neutrophils 6.1 thou/uL (1.40-6.50); %Basophils 0.7 % (0.0-1.0); %Eosinophils 2.1 % (0.0-10.0); %Lymphocytes 15.6 % (21.0-51.0); %Monocytes 8.4 % (0.0-10.0); %Neutrophils 73.1 % (42.0-75.0); Hemoglobin 10.7 g/dL (12.0-16.0); Mean Corpuscular Hemoglobin 29.5 pg (27.0-31.0); Mean Corpuscular Volume 92.3 fL (78.0-98.0); Mean Platelet Volume 8.7 fL (7.4-10.4); Platelet Count 209 thou/uL (130-400); RBC Distribution Width 14.2 % (11.5-14.5); Red Blood Cell (RBC) Count 3.62 mill/uL (4.20-5.40); White Blood Cell (WBC) Count 8.3 thou/uL (4.8-10.8)
[2018-07-12 07:27] LABS: Anion Gap 9 mmol/L (10-20); BUN (Urea Nitrogen) 13 mg/dL (9.8-20.1); Calc. Creatinine Clearance 47 mL/min (70-130); Calcium 8.9 mg/dL (7.8-10.44); Carbon Dioxide 20 mmol/L (23-31); Chloride 114 mmol/L (98-107); Estimated GFR-MDRD 75; Glucose 99 mg/dL (83-110); Potassium 3.2 mmol/L (3.5-5.1); Sodium 140 mmol/L (136-145)
[2018-07-12] MEDS: Metoprolol Tartrate 100 MG TAB PO SCH ×2 (08:47→20:33)
[2018-07-12] MEDS: Famotidine 20 MG TAB PO SCH ×2 (08:47→20:33)
[2018-07-12] MEDS: Ferrous Sulfate 325 MG TAB PO SCH (08:47)
[2018-07-12] MEDS: Aspirin 81 mg Enteric Coated Tablet PO SCH (08:47)
[2018-07-12] MEDS ORDERED: ISOVUE-370 76%-LOCM 1 ML ONE (13:01)
--- NOTE | 2018-07-12 13:40 | PDOC.PN ---
- Subjective Encounter Start Date: 07/12/18 Encounter Start Time: 13:38 Ms. Bravo was seen today in follow-up of UTI and metabolic encephalopathy. She is confused, but awake and alert. She believes she is at home, and that the month is March. She can not answer what year it is. - Objective Resuscitation Status - Order Detail: 07/11/18 03:50 Resuscitation Status Routine Resuscitation Status: DNAR: NO Resuscitation Discussed with: Confirmed with family and OOH DNAR documentation MAR Reviewed: Yes Vital Signs & Weight: Vital Signs (12 hours) Temp Pulse Resp BP Pulse Ox 07/12/18 12:00 98.9 F 71 18 166/76 H 96 07/12/18 08:11 99.0 F 74 16 161/74 H 95 07/12/18 04:00 98.3 F 62 16 158/74 H 99 Weight Weight 117 lb 1.047 oz I&O: 07/11/18 07/12/18 07/13/18 06:59 06:59 07:59 Intake Total 300 2450 Output Total 150 675 Balance 150 1775 Result Diagrams: 07/12/18 06:40 07/12/18 06:40 Phys Exam - Physical Examination HEENT: PERRLA Respiratory: no wheezing, no rales, no rhonchi, clear to auscultation bilateral Cardiovascular: RRR, no significant murmur, no rub Gastrointestinal: soft, non-tender, no distention, positive bowel sounds Musculoskeletal: pulses present, edema present trace pedal edema bilaterally Dx/Plan (1) Metabolic encephalopathy Code(s): G93.41 - METABOLIC ENCEPHALOPATHY Status: Acute (2) UTI (urinary tract infection) Status: Acute Qualifiers: Comment: proteus (3) Hypertension Code(s): I10 - ESSENTIAL (PRIMARY) HYPERTENSION Status: Chronic (4) Afib Code(s): I48.91 - UNSPECIFIED ATRIAL FIBRILLATION Status: Chronic Qualifiers: Atrial fibrillation type: paroxysmal Qualified Code(s): I48.0 - Paroxysmal atrial fibrillation Comment: sinus tachycardia for now (5) Alzheimer's dementia Code(s): G30.9 - ALZHEIMER'S DISEASE, UNSPECIFIED; F02.80 - DEMENTIA IN OTH DISEASES CLASSD ELSWHR W/O BEHAVRL DISTURB Status: Chronic - Plan * UTI with metabolic encephalopathy- slowly improving * Urine culture is growing E. Colie which is sensitive to cephalosporins- will change the antibiotic to Rocephin, and likely back to NH. * HTN- blood pressure is stable- continue Metoprolol * Alzheimer's type Dementia- ? back to baseline
[2018-07-12] MEDS: cefTRIAXone\\ROCEPHIN 1 GM in Sodium Chloride 0.9% 100 ML IVPB SCH (16:04)
[2018-07-12] MEDS ORDERED: Acetaminophen 1,000 MG in Premix Bag 1 BAG IVPB SCH (18:45)
[2018-07-12 19:04] LABS: Actual Bicarbonate (HCO3a) 22.8 mEq/L (22-28); CO2 Tension 31.5 mmHg (35.0-45.0); Calcium, Ionized 1.28 mmol/L (1.12-1.30); Carboxyhemoglobin (COHb) 1.1 gm% (0.0-3.0); Hemoglobin (Hb) 12.3 g/dL (12.0-16.0); Potassium - ABG Lab 2.77 mmol/L (3.70-5.30); pH, Arterial 7.48 (7.35-7.45)
[2018-07-12 19:05] LABS: O2 Tension (PaO2) 48.4 mmHg (> 60.0)
[2018-07-12 19:06] LABS: ALV-art Gradient 140.385 (0-20); Puncture Site LBA
--- NOTE | 2018-07-12 19:14 | PDOC.EVN ---
Event Note - Event Note Event Note: Went to patient's room for Code Green. Pt developed acute respiratory distress, was febrile. Pt not answering questions. S1, s2, reg. Lungs CTA. ABGs show hypoxia. Will check CTA to r/o PE. Will continue antibiotics for now.
--- NOTE | 2018-07-12 19:43 | CT ---
CTA OF THE THORAX UTILIZING IV CONTRAST AND 3D REFORMATTED IMAGIN07/12/18 INDICATION: Code Green activation for pulmonary embolism and shortness of breath. FINDINGS: No central or segmental pulmonary embolus is evident. There is cardiomegaly and bilateral pleural eff usions and perihilar edema suspicious for CHF or volume overload. There are coronary artery and thora cic aorta calcifications. There is a pacemaker overlying the left chest wall. There is bibasilar atel ectasis. No pneumothorax is evident. There is prominent thoracic scoliosis. No definite acute osseou s abnormality is evident. There is scattered degenerative and osteoarthritic change. Respiratory vitaliy on artifact slightly limits image detail of the segmental pulmonary vasculature. IMPRESSION: 1. No central or segmental pulmonary embolus. 2. Findings of CHF and volume overload. POS: [facility]
[2018-07-12] MEDS ORDERED: Ibuprofen 800 MG TAB PO SCH (20:00)
[2018-07-12] MEDS ORDERED: Furosemide 20 MG/2 ML VIAL SLOW IVP SCH (20:00)
[2018-07-12] MEDS: Donepezil HCl 5 MG TAB PO SCH (20:33)
[2018-07-13 05:21] LABS: #Basophils 0.1 thou/uL (0.0-0.2); #Eosinphils 0.1 thou/uL (0.0-0.7); #Lymphocytes 1.9 thou/uL (1.20-3.40); #Monocytes 1.1 thou/uL (0.11-0.59); #Neutrophils 7.6 thou/uL (1.40-6.50); %Basophils 1.1 % (0.0-1.0); %Eosinophils 0.9 % (0.0-10.0); %Lymphocytes 17.7 % (21.0-51.0); %Neutrophils 70.4 % (42.0-75.0); Hemoglobin 11.4 g/dL (12.0-16.0); Mean Corpuscular HGB CONC 31.9 g/dL (32.0-36.0); Mean Corpuscular Hemoglobin 29.1 pg (27.0-31.0); Mean Corpuscular Volume 91.3 fL (78.0-98.0); Mean Platelet Volume 8.6 fL (7.4-10.4); Platelet Count 228 thou/uL (130-400); RBC Distribution Width 14.3 % (11.5-14.5); Red Blood Cell (RBC) Count 3.91 mill/uL (4.20-5.40); White Blood Cell (WBC) Count 10.8 thou/uL (4.8-10.8)
[2018-07-13 05:34] LABS: Anion Gap 11 mmol/L (10-20); BUN (Urea Nitrogen) 11 mg/dL (9.8-20.1); Calc. Creatinine Clearance 42 mL/min (70-130); Calcium 9.2 mg/dL (7.8-10.44); Carbon Dioxide 25 mmol/L (23-31); Chloride 109 mmol/L (98-107); Estimated GFR-MDRD 65; Glucose 99 mg/dL (83-110); Sodium 142 mmol/L (136-145)
[2018-07-13 05:41] LABS: Potassium 2.9 mmol/L (3.5-5.1)
[2018-07-13] MEDS: Cilostazol 100 MG TAB PO SCH ×2 (09:39→16:54)
[2018-07-13] MEDS: Aspirin 81 mg Enteric Coated Tablet PO SCH (09:39)
[2018-07-13] MEDS: Famotidine 20 MG TAB PO SCH ×2 (09:39→20:05)
[2018-07-13] MEDS: Ferrous Sulfate 325 MG TAB PO SCH (09:39)
[2018-07-13] MEDS: Metoprolol Tartrate 100 MG TAB PO SCH ×2 (09:39→20:05)
--- NOTE | 2018-07-13 10:57 | PDOC.PN ---
- Subjective Encounter Start Date: 07/13/18 Encounter Start Time: 10:55 Ms. Bravo was seen today in follow-up. Last night a Code truman was called, due to concerns for respiratory distress. Today she appears the same as I saw her yesterday. She does not have any complaints. She is sitting up in bed, pleasantly confused. Her oxygen saturations are 100% on 2 Liters. - Objective Resuscitation Status - Order Detail: 07/11/18 03:50 Resuscitation Status Routine Resuscitation Status: DNAR: NO Resuscitation Discussed with: Confirmed with family and OOH DNAR documentation MAR Reviewed: Yes Vital Signs & Weight: Vital Signs (12 hours) Temp Pulse Resp BP Pulse Ox 07/13/18 07:39 79 20 143/80 H 100 07/13/18 07:33 100 07/13/18 03:40 97.8 F 81 20 171/86 H 96 07/12/18 23:16 97.8 F 80 18 163/77 H 98 Weight Weight 117 lb I&O: 07/12/18 07/13/18 07/14/18 05:59 06:59 06:59 Intake Total Output Total Balance Result Diagrams: 07/13/18 04:26 07/13/18 04:26 Additional Labs: Accuchecks 07/12/18 18:45 POC Glucose 123 H Phys Exam - Physical Examination HEENT: PERRLA Respiratory: no wheezing, no rhonchi + faint rales at the bases Cardiovascular: RRR, no significant murmur, no rub Gastrointestinal: soft, non-tender, no distention, positive bowel sounds Musculoskeletal: pulses present, edema present + 1+ pedal edema in both lower extremities Dx/Plan (1) Acute respiratory failure with hypoxemia Code(s): J96.01 - ACUTE RESPIRATORY FAILURE WITH HYPOXIA Status: Acute (2) UTI (urinary tract infection) Status: Acute Qualifiers: Comment: proteus (3) Hypertension Code(s): I10 - ESSENTIAL (PRIMARY) HYPERTENSION Status: Chronic (4) Afib Code(s): I48.91 - UNSPECIFIED ATRIAL FIBRILLATION Status: Chronic Qualifiers: Atrial fibrillation type: paroxysmal Qualified Code(s): I48.0 - Paroxysmal atrial fibrillation Comment: sinus tachycardia for now (5) Alzheimer's dementia Code(s): G30.9 - ALZHEIMER'S DISEASE, UNSPECIFIED; F02.80 - DEMENTIA IN OTH DISEASES CLASSD ELSWHR W/O BEHAVRL DISTURB Status: Chronic (6) Metabolic encephalopathy Code(s): G93.41 - METABOLIC ENCEPHALOPATHY Status: Acute - Plan * Acute respiratory Distress with hypoxemia- improved -CTA results noted- she was volume overloaded- Lasix was given last night, and IV fluids reduced * UTI urine culture is growing E. coli which is sensitive to Rocephin * Sepsis- improving- She is still having some fever off and on * Acute metabolic encephalopathy- also improving. * HTN- blood pressure is trending down * Mobilize with PT/OT
[2018-07-13 14:40] LABS: Potassium 3.8 mmol/L (3.5-5.1)
[2018-07-13] MEDS: cefTRIAXone\\ROCEPHIN 1 GM in Sodium Chloride 0.9% 100 ML IVPB SCH (14:54)
[2018-07-13] MEDS: Sodium Chloride 0.9% 1,000 ML IV SCH (16:53)
[2018-07-13] MEDS ORDERED: Furosemide 40 MG/4 ML VIAL SLOW IVP SCH (17:00)
[2018-07-13] MEDS: Donepezil HCl 5 MG TAB PO SCH (20:05)
[2018-07-14] MEDS ORDERED: Furosemide 20 MG TAB PO SCH (09:00)
[2018-07-14] MEDS: Famotidine 20 MG TAB PO SCH (10:14)
[2018-07-14] MEDS: Cilostazol 100 MG TAB PO SCH ×2 (10:14→16:31)
[2018-07-14] MEDS: Ferrous Sulfate 325 MG TAB PO SCH (10:15)
[2018-07-14] MEDS: Metoprolol Tartrate 100 MG TAB PO SCH (10:15)
[2018-07-14] MEDS: Aspirin 81 mg Enteric Coated Tablet PO SCH (10:15)
--- NOTE | 2018-07-14 12:00 | PDOC.PN ---
- Subjective Encounter Start Date: 07/14/18 Encounter Start Time: 11:59 Ms. Bravo was seen today in follow-up of UTI. She does not have any complaints this morning. She does not appear in any respiratory distress. - Objective Resuscitation Status - Order Detail: 07/11/18 03:50 Resuscitation Status Routine Resuscitation Status: DNAR: NO Resuscitation Discussed with: Confirmed with family and OOH DNAR documentation MAR Reviewed: Yes Vital Signs & Weight: Vital Signs (12 hours) Temp Pulse Resp BP Pulse Ox 07/14/18 08:00 97.9 F 80 18 140/67 100 07/14/18 04:00 98.5 F 80 18 130/76 94 L Weight Weight 135 lb 8 oz I&O: 07/13/18 07/14/18 07/15/18 06:59 06:59 06:59 Intake Total 1820 Output Total 2400 Balance -580 Result Diagrams: 07/13/18 04:26 07/13/18 13:56 Phys Exam - Physical Examination HEENT: PERRLA Respiratory: no wheezing, no rales, no rhonchi + coarse breath sounds Cardiovascular: RRR, no significant murmur, no rub Gastrointestinal: soft, non-tender, no distention, positive bowel sounds Musculoskeletal: pulses present, edema present + non-pitting edema in both lower and upper extremities Dx/Plan (1) Acute respiratory failure with hypoxemia Code(s): J96.01 - ACUTE RESPIRATORY FAILURE WITH HYPOXIA Status: Acute (2) UTI (urinary tract infection) Status: Acute Qualifiers: Comment: proteus (3) Hypertension Code(s): I10 - ESSENTIAL (PRIMARY) HYPERTENSION Status: Chronic (4) Afib Code(s): I48.91 - UNSPECIFIED ATRIAL FIBRILLATION Status: Chronic Qualifiers: Atrial fibrillation type: paroxysmal Qualified Code(s): I48.0 - Paroxysmal atrial fibrillation Comment: sinus tachycardia for now (5) Alzheimer's dementia Code(s): G30.9 - ALZHEIMER'S DISEASE, UNSPECIFIED; F02.80 - DEMENTIA IN OTH DISEASES CLASSD ELSWHR W/O BEHAVRL DISTURB Status: Chronic (6) Metabolic encephalopathy Code(s): G93.41 - METABOLIC ENCEPHALOPATHY Status: Acute - Plan * UTI- urine culture is growing E. Colie which is sensitive to Cephalosporins- will change to omnicef * Metabolic encephalopathy- resolved * Acute respiratory failure- likely from volume overload- she has improved after IV Lasix- and will start her home regimen of daily Lasix 20mg a day * Stable for transition back to the NH ( [facility]).
--- NOTE | 2018-07-14 13:50 | DIS ---
DATE OF ADMISSION: 07/10/2018 DATE OF DISCHARGE: 07/14/2018 DISCHARGE DISPOSITION: Back to the [facility]. DISCHARGE DIAGNOSES: 1. Urinary tract infection with metabolic encephalopathy. 2. Acute on chronic respiratory failure. 3. Acute on chronic diastolic heart failure exacerbation. 4. Alzheimer's type dementia. 5. Hypertension. 6. Hypothyroidism. 7. Chronic atrial fibrillation. 8. Iron deficiency anemia. DISCHARGE MEDICATIONS: Include; 1. Omnicef 300 mg twice a day for 7 days. 2. Lopressor 100 mg twice daily. 3. Evista 60 mg daily. 4. Iron 65 mg daily. 5. Furosemide 20 mg daily. 6. Aricept 10 mg at bedtime. 7. Pletal 100 mg twice daily. 8. Aspirin 81 mg a day. PROCEDURES: Procedures done during the admission; the patient had a CT scan of the brain, which was negative for any acute intracranial process. Also had a CT angiogram of the chest, which was negative for PE, but there was findings consistent with CHF and volume overload. She had a urine culture, which grew E coli, which was sensitive to cephalosporins, but resistant to the fluoroquinolones. CODE STATUS: DNAR. ALLERGIES: NO KNOWN DRUG ALLERGIES. HOSPITAL COURSE: Ms. Bravo is a pleasant 83-year-old female, who was brought to the hospital after she was found less responsive and not acting as usual at the intermediate. She was found to have a urinary tract infection and it is likely that the mental status changes were due to the urinary tract infection. She was started on IV antibiotics and improved over the course of the next couple of days back to her baseline function. Her hospital stay was complicated by an episode of respiratory distress, which was as a result of volume overload. The patient's Lasix had been held on admission and she was given IV fluids for the UTI. It had become volume overloaded. She had to be given IV Lasix. She diuresed and improved and her baseline dose of Lasix was restarted. At the time of discharge, she was afebrile. Her appetite had improved and she was back to her baseline mental status and is being discharged back to [facility]. Job ID: [id number]
[2018-07-14] MEDS: cefTRIAXone\\ROCEPHIN 1 GM in Sodium Chloride 0.9% 100 ML IVPB SCH (16:30)
[2018-07-14 16:38] VITALS: BP 117/61; TEMP 97.5
--- NOTE | 2018-07-15 09:44 | EKG ---
Test Reason : Blood Pressure : / mmHG Vent. Rate : 096 BPM Atrial Rate : 107 BPM P-R Int : 000 ms QRS Dur : 152 ms QT Int : 416 ms P-R-T Axes : 000 -84 078 degrees QTc Int : 525 ms Ventricular-paced rhythm Abnormal ECG Confirmed by TRAVIS FLEMING ([id number]) on 07/15/2018 9:44:24 AM Referred By: SHADI Confirmed By:TRAVIS FLEMING
== END 2018-07-14 18:25 | DRG 871 ==
LOC: ERS 18:27 → SURG A 22:39 → 2NO 07-12 19:45
PROVIDERS: ADMIT Emergency Medicine; ATTEND Emergency Medicine
DX: A41.51 Sepsis due to Escherichia coli [E. coli] (principal); G93.41 Metabolic encephalopathy; J96.20 Acute and chronic respiratory failure, unspecified whether with hypoxia or hypercapnia; I50.33 Acute on chronic diastolic (congestive) heart failure; N39.0 Urinary tract infection, site not specified; N17.9 Acute kidney failure, unspecified; Z66 Do not resuscitate; I11.0 Hypertensive heart disease with heart failure; I48.2 Chronic atrial fibrillation; G30.9 Alzheimer's disease, unspecified; F02.80 Dementia in other diseases classified elsewhere, unspecified severity, without behavioral disturbance, psychotic disturbance, mood disturbance, and anxiety; I73.9 Peripheral vascular disease, unspecified; D50.9 Iron deficiency anemia, unspecified; E03.9 Hypothyroidism, unspecified; B96.20 Unspecified Escherichia coli [E. coli] as the cause of diseases classified elsewhere; M81.0 Age-related osteoporosis without current pathological fracture; Z79.02 Long term (current) use of antithrombotics/antiplatelets; Z79.899 Other long term (current) drug therapy
CPT/HCPCS: 36415; 36416; 51701; 70450; 71045; 71275; 80048; 80053; 80306; 80307; 81003; 81015; 82140; 82805; 83605; 83690; 85007; 85025; 85027; 87040; 87077; 87086; 87149; 87186; 87324; 87449; 93005; 93010; 94640; 94760; 96365; 96367; A4353; J0696; J1940; J2185; J3370; J7050; Q9966

== ENCOUNTER 2019-02-21 23:03 | Emergency (ER) | payer MEDICARE, BC, MEDICAID ==
[2019-02-22 01:13] LABS: #Basophils 0.1 thou/uL (0.0-0.2); #Eosinphils 0.3 thou/uL (0.0-0.7); #Lymphocytes 2.6 thou/uL (1.20-3.40); #Monocytes 0.6 thou/uL (0.11-0.59); #Neutrophils 7.7 thou/uL (1.40-6.50); %Lymphocytes 22.6 % (21.0-51.0); %Monocytes 5.2 % (0.0-10.0); %Neutrophils 68.3 % (42.0-75.0); Hemoglobin 10.8 g/dL (12.0-16.0); Mean Corpuscular Hemoglobin 30.3 pg (27.0-31.0); Mean Corpuscular Volume 91.9 fL (78.0-98.0); Platelet Count 314 thou/uL (130-400); RBC Distribution Width 13.9 % (11.5-14.5); Red Blood Cell (RBC) Count 3.56 mill/uL (4.20-5.40); White Blood Cell (WBC) Count 11.3 thou/uL (4.8-10.8)
[2019-02-22 01:20] LABS: PTT 34.2 SEC (22.9-36.1); Prothrombin Time 13.6 SEC (12.0-14.7)
[2019-02-22 01:35] LABS: ALT (SGPT) 18 U/L (8-55); AST (SGOT) 19 U/L (5-34); Albumin 3.4 g/dL (3.4-4.8); Alkaline Phosphatase 85 U/L (40-110); Anion Gap 14 mmol/L (10-20); BUN (Urea Nitrogen) 17 mg/dL (9.8-20.1); Bilirubin, Total 0.5 mg/dL (0.2-1.2); CK (CPK) 94 U/L (29-168); Calc. Creatinine Clearance 0 mL/min (70-130); Calcium 9.8 mg/dL (7.8-10.44); Carbon Dioxide 26 mmol/L (23-31); Chloride 107 mmol/L (98-107); Estimated GFR-MDRD 57; Globulin 2.9 g/dL (2.4-3.5); Glucose 111 mg/dL (83-110); Potassium 3.7 mmol/L (3.5-5.1); Protein, Total 6.3 g/dL (6.0-8.3); Sodium 143 mmol/L (136-145)
--- NOTE | 2019-02-22 08:39 | RAD ---
PRELIMINARY REPORT/[facility]/EMERGENCY AFTER HOURS PROCEDURE: PROCEDURE INFORMATION: Exam: XR Pelvis Exam date and time: 02/21/2019 11:44 PM Clinical history: 83 years old, female; Pelvic pain; Patient HX: F85 reports to ED from [facility] C/O right hip contusion TECHNIQUE: Imaging protocol: XR pelvis. Views: 1 or 2 view. COMPARISON: DX XR Hip Rt 2-3 View 02/21/2019 11:40 PM FINDINGS: Bones/joints: Advanced degenerative changes of the right hip joint. No definite acute fracture. Soft tissues: Unremarkable. Vasculature: Vascular calcifications are noted. IMPRESSION: No definite acute fracture or dislocation. Thank you for allowing us to participate in the care of your patient. Dictated and Authenticated by: Katelynn Samuels MD 02/22/2019 1:18 AM Central Time ([place] & [place]) FINAL REPORT EMERGENCY AFTER HOURS STUDY: RADIOGRAPH PELVIS 1 VIEW: DATE: 02/21/2019. Time: 1145 PM. HISTORY: 83-year-old male with traumatic right hip pain. FINDINGS: Agree with preliminary report by [facility]. Severe superior hip joint space narrowing. Minimal flattening of femoral head contour. No definite di splaced fracture identified, but the osteopenia and large body habitus could easily obscure a fracture. No dislocation. No gross disruption of pelvic ring identified. Relatively normal contralate ral left hip. High-grade lumbar spondylosis and dextroscoliosis. IMPRESSION: 1. High-grade osteoarthrosis of right hip with severe articular cartilage loss. 2. No fracture identified. Transcribed Date/Time: 02/22/2019 8:46 AM
--- NOTE | 2019-02-22 08:40 | RAD ---
Final report by Dr. Badillo Emergency after-hours study Radiograph right hip 2 views: DATE: 02/21/2019 Time: 11:49 PM HISTORY: 83-year-old male with traumatic right hip pain. FINDINGS: Agree with preliminary report by [facility]. Severe superior hip joint space narrowing. Minimal flattening of femoral head contour. No definite di splaced fracture identified, but the osteopenia and large body habitus could easily obscure a fracture. No dislocation. IMPRESSION: 1. High-grade osteoarthrosis of right hip with severe articular cartilage loss. 2. No fracture identified.
--- NOTE | 2019-02-22 08:44 | RAD ---
RADIOGRAPH CHEST 1 VIEW: DATE: 02/22/2019 TIME: 12:30 AM HISTORY: 83-year-old female status post fall. Acute chest trauma. COMPARISON: 07/10/2018 FINDINGS: Left subclavian dual lead pacemaker. Widening of cardiac shadow. Opacification at right medial base a nd partial opacification at left base appears similar to prior study. Previously, there were pleural effusion that were not visible on the AP view, shown by CT. The same could be possible on the current study. No interval change is detected. No pulmonary edema. No pneumothorax. IMPRESSION: 1) pacemaker. 2) nonspecific opacities at bilateral lung bases, chronic versus acute.
--- NOTE | 2019-02-22 09:04 | CT ---
PRELIMINARY REPORT/[facility]/EMERGENCY AFTER HOURS PROCEDURE: PROCEDURE INFORMATION: Exam: CT Pelvis Without Contrast; Skeletal Exam date and time: 02/22/2019 1:45 AM Clinical history: 83 years old, female; Hip pain; Patient HX: Er 25. F83 reports to ED from [facility] C/O right hip contusion. On shift change, right hip contusion was noted TECHNIQUE: Imaging protocol: Computed tomography images of the pelvis without contrast. Exam focused on the skeletal structures. COMPARISON: DX XR Pelvis AP STANDARD 02/21/2019 11:44 PM FINDINGS: Stomach and bowel: There is diverticular disease of the colon, without evidence of acute diverticulitis. No perforation, or abscess. No signs or history of bleeding provided. Reproductive: The patient is status post hysterectomy. No adnexal masses are seen. Bones/joints: Advanced right hip arthropathy. Advanced degenerative changes of the lower lumbar spine. Soft tissues: There is an intramuscular hematoma in the right rectus abdominis, measuring 4.7 x 7.5 by approximately 10.7 cm in length. There is a small fat-containing umbilical hernia. IMPRESSION: Acute right rectus sheath hematoma. No acute fracture or dislocation. Thank you for allowing us to participate in the care of your patient. Dictated and Authenticated by: Katelynn Samuels MD 02/22/2019 2:12 AM Central Time ([place] & [place]) FINAL REPORT EMERGENCY AFTER HOURS STUDY: CT PELVIS NONCONTRAST: HISTORY: 83-year-old female with acute, traumatic right hip pain after fall. FINDINGS: Severe osteoarthrosis of right hip with severe articular cartilage loss. No acute fracture identified. However, with severe osteopenia and severe DJD, an acute fracture can b e obscured, even on CT. The most sensitive modality to detect occult pelvic fractures would be a noncontrast MRI, but the pat ient has a pacemaker. If symptoms do not improve, then follow-up pelvic CT is recommended in 5-10 days. There is a moderately large hematoma of the right rectus abdominis muscle. Agree with preliminary report by [facility]. IMPRESSION: 1. Acute, traumatic hematoma of right rectus abdominis muscle. 2. No acute fracture identified. 3. Severe osteoarthrosis of right hip. 4. Dextroscoliosis and high-grade spondylosis of lumbar spine. Transcribed Date/Time: 02/22/2019 9:31 AM
== END 2019-02-22 03:04 | disposition home or self-care (01) ==
LOC: ERS 23:03
DX: M79.81 Nontraumatic hematoma of soft tissue (principal); E03.9 Hypothyroidism, unspecified; I48.91 Unspecified atrial fibrillation; I10 Essential (primary) hypertension; F03.90 Unspecified dementia, unspecified severity, without behavioral disturbance, psychotic disturbance, mood disturbance, and anxiety; I73.9 Peripheral vascular disease, unspecified; M81.0 Age-related osteoporosis without current pathological fracture; D50.9 Iron deficiency anemia, unspecified; Z87.891 Personal history of nicotine dependence; Z85.828 Personal history of other malignant neoplasm of skin; Z79.82 Long term (current) use of aspirin; Z79.899 Other long term (current) drug therapy
CPT/HCPCS: 71045; 72170; 72192; 80053; 82550; 85025; 85610; 85730; 86850; 86900; 86901; 93005

== ENCOUNTER 2021-02-06 17:15 | Inpatient (IN) | payer MEDICARE, BC, MEDICAID ==
[2021-02-06 17:29] LABS: Actual Bicarbonate (HCO3a) 24.2 mEq/L (22-28); Analyzer IN Cardio ER; Base Excess (BEa) 1.5 mEq/L (-2.0 to +3.0); CO2 Tension 32.6 mmHg (35.0-45.0); Calcium, Ionized (arterial) 1.25 mmol/L (1.12-1.30); Carboxyhemoglobin (COHb) 0.8 gm% (0.0-3.0); Hemoglobin (Hb) 14.3 g/dL (12.0-16.0); O2 Tension (PaO2), arterial 76.5 mmHg (> 60.0); Potassium - ABG Lab 3.73 mmol/L (3.70-5.30); Puncture Site RRA; pH, Arterial 7.49 (7.35-7.45)
[2021-02-06 17:59] LABS: Hemoglobin 14.3 g/dL (12.0-16.0); Mean Corpuscular HGB CONC 31.4 g/dL (32.0-36.0); Mean Corpuscular Hemoglobin 29.9 pg (27.0-31.0); Mean Corpuscular Volume 95.2 fL (78.0-98.0); Mean Platelet Volume 7.7 fL (7.4-10.4); Platelet Count 274 thou/uL (130-400); RBC Distribution Width 15.1 % (11.5-14.5); Red Blood Cell (RBC) Count 4.78 mill/uL (4.20-5.40); White Blood Cell (WBC) Count 17.6 thou/uL (4.8-10.8)
[2021-02-06 18:15] LABS: Anisocytosis SLIGHT = 6-15 cells (100X) (0-5/hpf); Band 11 % (5-11); Lymphocytes 9 % (21-51); MDiff Complete? YES; Monocytes 6 % (0-10); Neutrophil 73 % (42-75); Platelet Morphology Comment Appears Adequate; Polychromasia SLIGHT = 2-3 cells (100X) (0-2/hpf); Reactive Lymphocytes 1 % (0-10)
[2021-02-06 18:27] LABS: ALT (SGPT) 21 U/L (8-55); AST (SGOT) 33 U/L (5-34); Albumin 3.5 g/dL (3.4-4.8); Alkaline Phosphatase 91 U/L (40-110); Anion Gap 14 mmol/L (10-20); BUN (Urea Nitrogen) 23 mg/dL (9.8-20.1); Bilirubin, Total 0.5 mg/dL (0.2-1.2); Calc. Creatinine Clearance 0 mL/min (70-130); Calcium 9.9 mg/dL (7.8-10.44); Carbon Dioxide 28 mmol/L (23-31); Chloride 108 mmol/L (98-107); Globulin 2.7 g/dL (2.4-3.5); Glucose 113 mg/dL (83-110); Potassium 4.1 mmol/L (3.5-5.1); Protein, Total 6.2 g/dL (5.8-8.1); Sodium 146 mmol/L (136-145)
[2021-02-06 18:43] LABS: CKMB 6.3 ng/mL (0-6.6)
[2021-02-06 19:36] LABS: SARS-CoV-2 NAA Rapid Test Not Detected (NotDetected)
[2021-02-06] MEDS ORDERED: Sodium Chloride 0.9% 500 ML IV SCH ×2 (20:00→20:18)
[2021-02-06] MEDS ORDERED: hydrALAZINE 20 MG/ML VIAL SLOW IVP PRN (20:15)
[2021-02-06] MEDS ORDERED: Sodium Chloride 0.9% 250 ML IV SCH (20:22)
[2021-02-06 20:55] LABS: Lactic Acid 1.5 mmol/L (0.5-2.2)
[2021-02-06] MEDS ORDERED: Cefepime 1 GM VIAL ONE (21:35)
[2021-02-06] MEDS ORDERED: Vancomycin 1 GM/200 ML BAG ONE (21:35)
[2021-02-06] MEDS: Metoprolol Tartrate 100 MG TAB PO SCH (21:38)
[2021-02-06] MEDS: guaiFENesin/DM ER PO SCH (21:39)
[2021-02-06] MEDS: Vancomycin 1 GM in Premix Bag 1 BAG IVPB SCH (22:15)
[2021-02-06] MEDS: Cefepime 1 GM in Sodium Chloride 0.9% 100 ML IVPB SCH (23:10)
[2021-02-07] MEDS ORDERED: FLU VACC QS2021-22(65YR UP)/PF 240 MCG/0.7 ML SYRINGE IM ONE (01:15)
[2021-02-07 04:26] LABS: Anion Gap 16 mmol/L (10-20); BUN (Urea Nitrogen) 20 mg/dL (9.8-20.1); Calc. Creatinine Clearance 55 mL/min (70-130); Carbon Dioxide 25 mmol/L (23-31); Chloride 106 mmol/L (98-107); Glucose 140 mg/dL (83-110); Potassium 3.6 mmol/L (3.5-5.1); Sodium 143 mmol/L (136-145)
[2021-02-07 04:45] LABS: Band 27 % (5-11); Hemoglobin 15.5 g/dL (12.0-16.0); MDiff Complete? YES; Mean Corpuscular HGB CONC 31.4 g/dL (32.0-36.0); Mean Corpuscular Hemoglobin 30.3 pg (27.0-31.0); Mean Corpuscular Volume 96.6 fL (78.0-98.0); Mean Platelet Volume 8.2 fL (7.4-10.4); Metamyelocyte 2 % (0-0); Monocytes 5 % (0-10); Neutrophil 66 % (42-75); Platelet Count 234 thou/uL (130-400); Platelet Morphology Comment Appears Adequate; RBC Distribution Width 15.5 % (11.5-14.5); RBC Morphology Normal; White Blood Cell (WBC) Count 18.6 thou/uL (4.8-10.8)
[2021-02-07] MEDS ORDERED: Furosemide 20 MG/2 ML VIAL SLOW IVP SCH (05:15)
[2021-02-07] MEDS ORDERED: Acetaminophen 650 MG Suppository PR PRN (05:24)
[2021-02-07 08:22] LABS: Troponin I 0.077 ng/mL (< 0.028)
[2021-02-07] MEDS ORDERED: Labetalol HCl 100 MG/20 ML VIAL SLOW IVP PRN (09:20)
[2021-02-07] MEDS: Acetaminophen 325 MG TAB PO PRN (09:20)
[2021-02-07] MEDS: Enoxaparin Sodium 40 MG/0.4 ML SYRINGE SC SCH (09:20)
[2021-02-07] MEDS: Aspirin 81 mg Enteric Coated Tablet PO SCH (09:20)
[2021-02-07] MEDS: guaiFENesin/DM ER PO SCH ×2 (09:21→19:47)
[2021-02-07] MEDS: Metoprolol Tartrate 100 MG TAB PO SCH (09:21)
[2021-02-07] MEDS ORDERED: Furosemide 40 MG/4 ML VIAL SLOW IVP SCH (09:30)
[2021-02-07] MEDS: Cefepime 1 GM in Sodium Chloride 0.9% 100 ML IVPB SCH ×2 (09:42→20:37)
[2021-02-07 11:26] LABS: Troponin I 0.079 ng/mL (< 0.028)
[2021-02-07] MEDS: Vancomycin 1 GM in Premix Bag 1 BAG IVPB SCH (23:32)
[2021-02-08 04:52] LABS: Anion Gap 17 mmol/L (10-20); BUN (Urea Nitrogen) 27 mg/dL (9.8-20.1); Calc. Creatinine Clearance 54 mL/min (70-130); Calcium 9.8 mg/dL (7.8-10.44); Carbon Dioxide 26 mmol/L (23-31); Chloride 109 mmol/L (98-107); Glucose 123 mg/dL (83-110); Magnesium 2.1 mg/dL (1.6-2.6); Potassium 3.7 mmol/L (3.5-5.1); Sodium 148 mmol/L (136-145)
[2021-02-08 05:19] LABS: Band 25 % (5-11); Hemoglobin 14.8 g/dL (12.0-16.0); Lymphocytes 7 % (21-51); MDiff Complete? YES; Mean Corpuscular HGB CONC 32.2 g/dL (32.0-36.0); Mean Corpuscular Hemoglobin 30.8 pg (27.0-31.0); Mean Corpuscular Volume 95.6 fL (78.0-98.0); Mean Platelet Volume 8.5 fL (7.4-10.4); Metamyelocyte 1 % (0-0); Monocytes 4 % (0-10); Neutrophil 63 % (42-75); Platelet Count 246 thou/uL (130-400); Platelet Morphology Comment Appears Adequate; RBC Distribution Width 15.3 % (11.5-14.5); RBC Morphology Normal; White Blood Cell (WBC) Count 20.7 thou/uL (4.8-10.8)
[2021-02-08] MEDS: Enoxaparin Sodium 40 MG/0.4 ML SYRINGE SC SCH (09:26)
[2021-02-08] MEDS: Cefepime 1 GM in Sodium Chloride 0.9% 100 ML IVPB SCH ×2 (09:27→20:42)
[2021-02-08] MEDS ORDERED: Furosemide 40 MG/4 ML VIAL SLOW IVP SCH (09:30)
[2021-02-08] MEDS: Aspirin 81 mg Enteric Coated Tablet PO SCH (10:26)
[2021-02-08] MEDS: guaiFENesin/DM ER PO SCH ×2 (10:26→20:42)
[2021-02-08] MEDS: Metoprolol Tartrate 100 MG TAB PO SCH (20:42)
[2021-02-08 21:50] LABS: Vancomycin, Trough 15.1 ug/mL
[2021-02-08] MEDS: Vancomycin 1 GM in Premix Bag 1 BAG IVPB SCH (22:45)
[2021-02-09] MEDS: Acetaminophen 325 MG TAB PO PRN ×2 (03:06→21:54)
[2021-02-09 04:35] LABS: Band 5 % (5-11); Hemoglobin 14.1 g/dL (12.0-16.0); Lymphocytes 17 % (21-51); MDiff Complete? YES; Mean Corpuscular HGB CONC 31.5 g/dL (32.0-36.0); Mean Corpuscular Hemoglobin 30.1 pg (27.0-31.0); Mean Corpuscular Volume 95.5 fL (78.0-98.0); Mean Platelet Volume 8.6 fL (7.4-10.4); Monocytes 9 % (0-10); Neutrophil 69 % (42-75); Platelet Count 248 thou/uL (130-400); Platelet Morphology Comment Appears Adequate; RBC Distribution Width 14.8 % (11.5-14.5); RBC Morphology Normal; Red Blood Cell (RBC) Count 4.69 mill/uL (4.20-5.40); White Blood Cell (WBC) Count 17.9 thou/uL (4.8-10.8)
[2021-02-09 04:45] LABS: Anion Gap 16 mmol/L (10-20); BUN (Urea Nitrogen) 28 mg/dL (9.8-20.1); Calc. Creatinine Clearance 47 mL/min (70-130); Calcium 9.7 mg/dL (7.8-10.44); Carbon Dioxide 23 mmol/L (23-31); Chloride 102 mmol/L (98-107); Glucose 147 mg/dL (83-110); Potassium 3.2 mmol/L (3.5-5.1); Sodium 138 mmol/L (136-145)
[2021-02-09] MEDS ORDERED: Amlodipine 5 MG TAB PO SCH ×2 (09:00→10:15)
[2021-02-09] MEDS ORDERED: Lisinopril 10 MG TAB PO SCH (10:00)
[2021-02-09] MEDS: Enoxaparin Sodium 40 MG/0.4 ML SYRINGE SC SCH (10:24)
[2021-02-09] MEDS: Cefepime 1 GM in Sodium Chloride 0.9% 100 ML IVPB SCH ×2 (10:24→21:56)
[2021-02-09] MEDS: guaiFENesin/DM ER PO SCH ×2 (10:25→21:56)
[2021-02-09] MEDS: Metoprolol Tartrate 100 MG TAB PO SCH ×2 (10:25→21:56)
[2021-02-09] MEDS: Aspirin 81 mg Enteric Coated Tablet PO SCH (10:25)
[2021-02-09] MEDS: Furosemide 40 MG/4 ML VIAL SLOW IVP SCH (15:25)
[2021-02-09 18:57] LABS: Bilirubin Negative (Negative); Blood, Urine 1+ (Negative); Clarity Clear (Clear); Glucose, Urine (Dipstick) Normal (Negative); Ketone, Urine Negative (Negative); Leukocyte Negative Leu/uL (Negative); Nitrite Negative (Negative); Protein, Urine (Dipstick) Negative (Neg-Trace); Specific Gravity, Urine 1.007 (1.002-1.036); Squamous Epithelial 0-3 HPF (0-3); Urobilinogen Normal mg/dL (Less than 2); WBC/HPF 0-3 HPF (0-3)
[2021-02-09 18:58] LABS: Bacteria/HPF 1+ HPF (None Seen)
[2021-02-09 19:00] LABS: Urine Culture Reflex Yes Yes
[2021-02-09] MEDS: Vancomycin 1 GM in Premix Bag 1 BAG IVPB SCH (21:56)
[2021-02-10] MEDS: Furosemide 40 MG/4 ML VIAL SLOW IVP SCH ×2 (05:24→14:39)
[2021-02-10 07:03] LABS: Magnesium 2.1 mg/dL (1.6-2.6)
[2021-02-10] MEDS: Cefepime 1 GM in Sodium Chloride 0.9% 100 ML IVPB SCH ×2 (08:43→20:04)
[2021-02-10] MEDS: Acetaminophen 325 MG TAB PO PRN (08:44)
[2021-02-10] MEDS: Metoprolol Tartrate 100 MG TAB PO SCH ×2 (08:44→20:04)
[2021-02-10] MEDS: Lisinopril 10 MG TAB PO SCH (08:46)
[2021-02-10] MEDS: Amlodipine 5 MG TAB PO SCH (08:47)
[2021-02-10] MEDS: Enoxaparin Sodium 40 MG/0.4 ML SYRINGE SC SCH (08:48)
[2021-02-10] MEDS: Aspirin 81 mg Enteric Coated Tablet PO SCH (08:49)
[2021-02-10 10:57] VITALS: BMI 23.1
[2021-02-10] MEDS: Potassium Chloride 20 MEQ TAB PO SCH ×2 (17:23→21:08)
[2021-02-10 21:41] LABS: Vancomycin, Trough 20.8 ug/mL
[2021-02-10] MEDS: Vancomycin 1 GM in Premix Bag 1 BAG IVPB SCH (22:41)
[2021-02-11] MEDS: Acetaminophen 325 MG TAB PO PRN (00:58)
[2021-02-11] MEDS: Potassium Chloride 20 MEQ TAB PO SCH (04:17)
[2021-02-11] MEDS: Furosemide 40 MG/4 ML VIAL SLOW IVP SCH ×2 (05:42→13:14)
[2021-02-11 07:41] LABS: Anion Gap 15 mmol/L (10-20); BUN (Urea Nitrogen) 24 mg/dL (9.8-20.1); Calc. Creatinine Clearance 40 mL/min (70-130); Calcium 10.4 mg/dL (7.8-10.44); Carbon Dioxide 31 mmol/L (23-31); Chloride 100 mmol/L (98-107); Glucose 93 mg/dL (83-110); Potassium 4.3 mmol/L (3.5-5.1); Sodium 142 mmol/L (136-145)
[2021-02-11] MEDS: Metoprolol Tartrate 100 MG TAB PO SCH ×2 (08:10→21:17)
[2021-02-11] MEDS: Amlodipine 5 MG TAB PO SCH (08:10)
[2021-02-11] MEDS: Aspirin 81 mg Enteric Coated Tablet PO SCH (08:10)
[2021-02-11] MEDS: Lisinopril 10 MG TAB PO SCH (08:10)
[2021-02-11] MEDS: Cefepime 1 GM in Sodium Chloride 0.9% 100 ML IVPB SCH ×2 (08:11→21:17)
[2021-02-11] MEDS ORDERED: GUAIFENESIN SF SOLN 200 MG/10 ML UDCUP PO PRN (08:12)
[2021-02-11] MEDS ORDERED: Bisacodyl 5 MG TAB PO PRN (08:12)
[2021-02-11] MEDS ORDERED: Hydrocerin (Eucerin) Cream 120 gm Jar TOP PRN (08:12)
[2021-02-11] MEDS ORDERED: Artificial Tear Sol 15 ML BOT EA EYE PRN (08:12)
[2021-02-11] MEDS ORDERED: Sodium Chloride 0.65% Nasal 44 ML BOT EA NARE PRN (08:12)
[2021-02-11] MEDS ORDERED: Cepastat Lozenges 1 LOZ PO PRN (08:12)
[2021-02-11] MEDS: Enoxaparin Sodium 40 MG/0.4 ML SYRINGE SC SCH (08:12)
[2021-02-11] MEDS ORDERED: Ondansetron PF 4 MG/2 ML Vial IVP PRN (08:12)
[2021-02-11] MEDS ORDERED: Senokot S 8.6-50 MG TAB PO PRN (08:12)
[2021-02-11] MEDS ORDERED: Ondansetron ODT 4 MG TAB PO PRN (08:12)
[2021-02-11] MEDS ORDERED: Loratadine 10 MG TAB PO PRN (08:12)
[2021-02-11] MEDS ORDERED: Calcium Carbonate 500 MG ChewTAB PO PRN (08:12)
[2021-02-11] MEDS ORDERED: Melatonin 3 MG TAB PO PRN (08:13)
[2021-02-11 08:31] LABS: Band 7 % (5-11); Eosinophils 1 % (0-10); Hemoglobin 14.8 g/dL (12.0-16.0); Lymphocytes 19 % (21-51); MDiff Complete? YES; Mean Corpuscular HGB CONC 31.7 g/dL (32.0-36.0); Mean Corpuscular Hemoglobin 30.1 pg (27.0-31.0); Mean Corpuscular Volume 94.9 fL (78.0-98.0); Mean Platelet Volume 8.7 fL (7.4-10.4); Monocytes 3 % (0-10); Neutrophil 70 % (42-75); Platelet Count 290 thou/uL (130-400); RBC Distribution Width 14.9 % (11.5-14.5); Red Blood Cell (RBC) Count 4.93 mill/uL (4.20-5.40); White Blood Cell (WBC) Count 17.4 thou/uL (4.8-10.8)
[2021-02-11] MEDS: Donepezil HCl 5 MG TAB PO SCH (21:17)
[2021-02-11 21:37] LABS: Vancomycin, Trough 26.8 ug/mL
[2021-02-11] MEDS: Vancomycin 1 GM in Premix Bag 1 BAG IVPB SCH (23:20)
[2021-02-12] MEDS ORDERED: LACTINEX 1 TAB PO SCH (04:54)
[2021-02-12] MEDS: Loperamide HCl 2 MG CAP PO PRN ×2 (08:01→20:26)
[2021-02-12] MEDS: Amlodipine 5 MG TAB PO SCH (08:02)
[2021-02-12] MEDS: Metoprolol Tartrate 100 MG TAB PO SCH ×2 (08:02→20:26)
[2021-02-12] MEDS: Lisinopril 10 MG TAB PO SCH (08:02)
[2021-02-12] MEDS: LACTINEX 1 TAB PO SCH ×3 (08:03→20:26)
[2021-02-12] MEDS: Cefepime 1 GM in Sodium Chloride 0.9% 100 ML IVPB SCH (08:03)
[2021-02-12] MEDS: Aspirin 81 mg Enteric Coated Tablet PO SCH (08:03)
[2021-02-12] MEDS: Enoxaparin Sodium 40 MG/0.4 ML SYRINGE SC SCH (08:18)
[2021-02-12 11:48] LABS: Band 6 % (5-11); Eosinophils 1 % (0-10); Hemoglobin 15.5 g/dL (12.0-16.0); Lymphocytes 12 % (21-51); MDiff Complete? YES; Mean Corpuscular HGB CONC 33.2 g/dL (32.0-36.0); Mean Corpuscular Hemoglobin 31.8 pg (27.0-31.0); Mean Corpuscular Volume 95.9 fL (78.0-98.0); Mean Platelet Volume 8.4 fL (7.4-10.4); Monocytes 4 % (0-10); Neutrophil 77 % (42-75); Nucleated RBC 1 % (0); Platelet Count 318 thou/uL (130-400); RBC Distribution Width 15.1 % (11.5-14.5); Red Blood Cell (RBC) Count 4.88 mill/uL (4.20-5.40); White Blood Cell (WBC) Count 23.5 thou/uL (4.8-10.8)
[2021-02-12 11:53] LABS: ALT (SGPT) 32 U/L (8-55); AST (SGOT) 41 U/L (5-34); Albumin 3.3 g/dL (3.4-4.8); Alkaline Phosphatase 101 U/L (40-110); Anion Gap 20 mmol/L (10-20); BUN (Urea Nitrogen) 45 mg/dL (9.8-20.1); Bilirubin, Total 0.3 mg/dL (0.2-1.2); Calc. Creatinine Clearance 31 mL/min (70-130); Calcium 10.7 mg/dL (7.8-10.44); Carbon Dioxide 19 mmol/L (23-31); Chloride 106 mmol/L (98-107); Globulin 3.1 g/dL (2.4-3.5); Glucose 140 mg/dL (83-110); Magnesium 2.3 mg/dL (1.6-2.6); Phosphorus 3.1 mg/dL (2.3-4.7); Potassium 4.6 mmol/L (3.5-5.1); Protein, Total 6.4 g/dL (5.8-8.1); Sodium 140 mmol/L (136-145)
[2021-02-12] MEDS: Donepezil HCl 5 MG TAB PO SCH (20:26)
[2021-02-12] MEDS: Cefdinir 300 MG CAP PO SCH (20:26)
[2021-02-12 21:24] LABS: Vancomycin, Random 22.7 ug/mL (See Comment)
[2021-02-12] MEDS ORDERED: Vancomycin HCl 750 MG in Sodium Chloride 0.9% 250 ML 250 ML IVPB SCH (22:00)
[2021-02-13 07:27] VITALS: BP 104/58; TEMP 98.1
[2021-02-13] MEDS: LACTINEX 1 TAB PO SCH (08:31)
[2021-02-13] MEDS: Cefdinir 300 MG CAP PO SCH (08:32)
[2021-02-13] MEDS: Aspirin 81 mg Enteric Coated Tablet PO SCH (08:32)
[2021-02-13] MEDS: Lisinopril 10 MG TAB PO SCH (08:33)
[2021-02-13] MEDS: Enoxaparin Sodium 40 MG/0.4 ML SYRINGE SC SCH (08:33)
[2021-02-13] MEDS: Metoprolol Tartrate 100 MG TAB PO SCH (08:34)
[2021-02-14] MEDS ORDERED: Enoxaparin Sodium 30 MG/0.3 ML SYRINGE SC SCH (09:00)
== END 2021-02-13 14:07 | DRG 871 ==
LOC: ERS 17:15 → ERHOLD 19:34 → IMCU/EMU 02-07 00:31 → T4-A 02-09 19:06
PROVIDERS: ADMIT Internal Medicine; ATTEND Internal Medicine
PROC: 5A09457 Assistance with Respiratory Ventilation, 24-96 Consecutive Hours, Continuous Positive Airway Pressure (ICD-10-PCS; principal; 2021-02-06)
DX: A41.9 Sepsis, unspecified organism (principal); J96.01 Acute respiratory failure with hypoxia; I50.33 Acute on chronic diastolic (congestive) heart failure; J18.9 Pneumonia, unspecified organism; E87.0 Hyperosmolality and hypernatremia; I48.21 Permanent atrial fibrillation; J98.11 Atelectasis; Z66 Do not resuscitate; E03.9 Hypothyroidism, unspecified; I73.9 Peripheral vascular disease, unspecified; M81.0 Age-related osteoporosis without current pathological fracture; G30.9 Alzheimer's disease, unspecified; F02.80 Dementia in other diseases classified elsewhere, unspecified severity, without behavioral disturbance, psychotic disturbance, mood disturbance, and anxiety; R62.7 Adult failure to thrive; I11.0 Hypertensive heart disease with heart failure; Z20.822 Contact with and (suspected) exposure to COVID-19; E86.0 Dehydration; R77.8 Other specified abnormalities of plasma proteins; R65.20 Severe sepsis without septic shock; Z85.828 Personal history of other malignant neoplasm of skin; Z68.23 Body mass index [BMI] 23.0-23.9, adult; Z90.710 Acquired absence of both cervix and uterus; Z79.82 Long term (current) use of aspirin; Z79.899 Other long term (current) drug therapy; Z86.718 Personal history of other venous thrombosis and embolism; Z95.0 Presence of cardiac pacemaker
CPT/HCPCS: 0240U; 36415; 36600; 71045; 80048; 80053; 80202; 81001; 82553; 82805; 83605; 83735; 83880; 84100; 84145; 84484; 85025; 87040; 87086; 87633; 87798; 93005; 93306; 94640; 94660; 94760; J0360; J0692; J1650; J1940; J3370; J3490; J7030; J7620

== ENCOUNTER 2021-02-14 08:12 | Inpatient (IN) | payer MEDICARE, BC, MEDICAID ==
[2021-02-14] MEDS ORDERED: Cefepime 2 GM VIAL ONE ×2 (08:36→08:37)
[2021-02-14 08:46] LABS: Hemoglobin 15.2 g/dL (12.0-16.0); Mean Corpuscular HGB CONC 31.5 g/dL (32.0-36.0); Mean Corpuscular Hemoglobin 29.9 pg (27.0-31.0); Mean Corpuscular Volume 94.7 fL (78.0-98.0); Mean Platelet Volume 8.3 fL (7.4-10.4); Platelet Count 348 thou/uL (130-400); RBC Distribution Width 15.5 % (11.5-14.5); Red Blood Cell (RBC) Count 5.09 mill/uL (4.20-5.40); White Blood Cell (WBC) Count 19.5 thou/uL (4.8-10.8)
[2021-02-14 08:59] LABS: ALT (SGPT) 42 U/L (8-55); AST (SGOT) 66 U/L (5-34); Albumin 3.6 g/dL (3.4-4.8); Alkaline Phosphatase 113 U/L (40-110); Anion Gap 20 mmol/L (10-20); BUN (Urea Nitrogen) 51 mg/dL (9.8-20.1); Bilirubin, Total 0.6 mg/dL (0.2-1.2); Calc. Creatinine Clearance 0 mL/min (70-130); Calcium 10.9 mg/dL (7.8-10.44); Carbon Dioxide 27 mmol/L (23-31); Chloride 106 mmol/L (98-107); Globulin 3.3 g/dL (2.4-3.5); Glucose 120 mg/dL (83-110); Potassium 4.7 mmol/L (3.5-5.1); Protein, Total 6.9 g/dL (5.8-8.1); Sodium 148 mmol/L (136-145)
[2021-02-14 09:02] LABS: Anisocytosis SLIGHT = 6-15 cells (100X) (0-5/hpf); Band 4 % (5-11); Lymphocytes 7 % (21-51); MDiff Complete? YES; Monocytes 9 % (0-10); Neutrophil 79 % (42-75); Platelet Morphology Comment Appears Adequate; Polychromasia SLIGHT = 2-3 cells (100X) (0-2/hpf)
[2021-02-14] MEDS ORDERED: Vancomycin 1 GM/200 ML BAG ONE (09:13)
[2021-02-14 10:57] LABS: SARS-CoV-2 NAA Rapid Test Not Detected (NotDetected)
[2021-02-14] MEDS ORDERED: Senokot S 8.6-50 MG TAB PO PRN (11:34)
[2021-02-14] MEDS ORDERED: Ondansetron PF 4 MG/2 ML Vial IVP PRN (11:34)
[2021-02-14] MEDS ORDERED: Ondansetron ODT 4 MG TAB PO PRN (11:34)
[2021-02-14] MEDS ORDERED: Acetaminophen 650 MG Suppository PR PRN (11:34)
[2021-02-14] MEDS ORDERED: guaiFENesin 200 MG TAB PO PRN (11:42)
[2021-02-14 12:57] VITALS: BMI 28.6
[2021-02-14] MEDS ORDERED: FLU VACC QS2021-22(65YR UP)/PF 240 MCG/0.7 ML SYRINGE IM ONE (13:15)
[2021-02-14] MEDS: Enoxaparin Sodium 30 MG/0.3 ML SYRINGE SC SCH (14:47)
[2021-02-14] MEDS ORDERED: Sodium Chloride 0.9% 1,000 ML IV SCH (15:15)
[2021-02-14] MEDS ORDERED: Sodium Chloride 0.45% 1,000 ML IV SCH (16:15)
[2021-02-14] MEDS: Cefepime 1 GM in Sodium Chloride 0.9% 100 ML IVPB SCH (21:27)
[2021-02-15] MEDS: Acetaminophen 325 MG TAB PO PRN ×3 (00:07→23:20)
[2021-02-15] MEDS: Benzonatate 100 MG CAP PO PRN ×2 (05:23→23:21)
[2021-02-15 05:52] LABS: Bilirubin Negative (Negative); Blood, Urine 3+ (Negative); Clarity Turbid (Clear); Glucose, Urine (Dipstick) Normal (Negative); Ketone, Urine Trace mg/dL (Negative); Leukocyte Negative Leu/uL (Negative); Nitrite Negative (Negative); Protein, Urine (Dipstick) 70 mg/dL (Neg-Trace); RBC/HPF 0-3 HPF (0-3); Specific Gravity, Urine 1.018 (1.002-1.036); Squamous Epithelial None Seen HPF (0-3); Urobilinogen Normal mg/dL (Less than 2); WBC/HPF 0-3 HPF (0-3); pH, Urine 5.5 (5.0-9.0)
[2021-02-15 05:57] LABS: Bacteria/HPF 1+ HPF (None Seen)
[2021-02-15 05:59] LABS: Urine Culture Reflex Yes Yes
[2021-02-15 06:22] LABS: Hemoglobin 12.5 g/dL (12.0-16.0); Mean Corpuscular HGB CONC 31.3 g/dL (32.0-36.0); Mean Corpuscular Hemoglobin 29.9 pg (27.0-31.0); Mean Corpuscular Volume 95.5 fL (78.0-98.0); Mean Platelet Volume 7.9 fL (7.4-10.4); Platelet Count 261 thou/uL (130-400); Red Blood Cell (RBC) Count 4.19 mill/uL (4.20-5.40); White Blood Cell (WBC) Count 20.4 thou/uL (4.8-10.8)
[2021-02-15 06:35] LABS: Anion Gap 13 mmol/L (10-20); BUN (Urea Nitrogen) 46 mg/dL (9.8-20.1); Calc. Creatinine Clearance 34 mL/min (70-130); Calcium 9.4 mg/dL (7.8-10.44); Carbon Dioxide 25 mmol/L (23-31); Chloride 107 mmol/L (98-107); Glucose 110 mg/dL (83-110); Potassium 4.2 mmol/L (3.5-5.1); Sodium 141 mmol/L (136-145)
[2021-02-15] MEDS: Enoxaparin Sodium 30 MG/0.3 ML SYRINGE SC SCH (07:53)
[2021-02-15 08:55] LABS: Band 11 % (5-11); Lymphocytes 9 % (21-51); MDiff Complete? YES; Monocytes 4 % (0-10); Neutrophil 75 % (42-75); Nucleated RBC 1 % (0); Platelet Morphology Comment Appears Adequate; RBC Morphology Normal; Reactive Lymphocytes 1 % (0-10)
[2021-02-15] MEDS ORDERED: Vancomycin 1 GM in Premix Bag 1 BAG IVPB SCH (09:00)
[2021-02-15] MEDS: Cefepime 1 GM in Sodium Chloride 0.9% 100 ML IVPB SCH ×2 (10:10→21:55)
[2021-02-15] MEDS: Metoprolol Tartrate 100 MG TAB PO SCH (21:55)
[2021-02-16 08:23] LABS: Vancomycin, Trough 26.2 ug/mL
[2021-02-16] MEDS: Acetaminophen 325 MG TAB PO PRN ×2 (08:47→21:58)
[2021-02-16] MEDS: Cefepime 1 GM in Sodium Chloride 0.9% 100 ML IVPB SCH ×2 (08:48→21:58)
[2021-02-16] MEDS: Metoprolol Tartrate 100 MG TAB PO SCH ×2 (08:48→21:58)
[2021-02-16] MEDS: Aspirin 81 mg Enteric Coated Tablet PO SCH (08:48)
[2021-02-16] MEDS: Donepezil HCl 5 MG TAB PO SCH (08:48)
[2021-02-16] MEDS: Enoxaparin Sodium 30 MG/0.3 ML SYRINGE SC SCH (08:48)
[2021-02-16] MEDS ORDERED: OSTERA PO SCH (09:00)
[2021-02-16] MEDS ORDERED: Non-Formulary Item 1 EACH (Vit D3-Vit K/Berberine/Hops [Ostera Tablet] 1 TABLET Tablet) PO SCH (09:00)
[2021-02-16] MEDS ORDERED: [UNRECOGNIZED DRUG - OTHER] PO SCH (09:00)
[2021-02-16] MEDS ORDERED: [UNRECOGNIZED DRUG - MIXTURE] PO SCH (09:00)
[2021-02-16] MEDS ORDERED: Sodium Chloride 0.9% 1,000 ML IV SCH (15:45)
[2021-02-16 16:09] LABS: Hemoglobin 13.8 g/dL (12.0-16.0); Mean Corpuscular HGB CONC 32.6 g/dL (32.0-36.0); Mean Corpuscular Hemoglobin 30.8 pg (27.0-31.0); Mean Corpuscular Volume 94.6 fL (78.0-98.0); Mean Platelet Volume 8.1 fL (7.4-10.4); Platelet Count 269 thou/uL (130-400); RBC Distribution Width 14.8 % (11.5-14.5); Red Blood Cell (RBC) Count 4.47 mill/uL (4.20-5.40)
[2021-02-16 16:22] LABS: Band 14 % (5-11); Lymphocytes 6 % (21-51); MDiff Complete? YES; Monocytes 3 % (0-10); Myelocyte 2 % (0-0); Neutrophil 75 % (42-75); Platelet Morphology Comment Appears Adequate; RBC Morphology Normal; White Blood Cell (WBC) Count 20.8 thou/uL (4.8-10.8)
[2021-02-16 16:35] LABS: Anion Gap 16 mmol/L (10-20); BUN (Urea Nitrogen) 38 mg/dL (9.8-20.1); Calc. Creatinine Clearance 37 mL/min (70-130); Calcium 9.8 mg/dL (7.8-10.44); Carbon Dioxide 21 mmol/L (23-31); Chloride 107 mmol/L (98-107); Glucose 88 mg/dL (83-110); Potassium 3.8 mmol/L (3.5-5.1); Sodium 140 mmol/L (136-145)
[2021-02-16] MEDS: Dextrose 5 %-0.45 % NaCl 1,000 ML IV SCH (18:31)
[2021-02-17] MEDS: Dextrose 5 %-0.45 % NaCl 1,000 ML IV SCH ×3 (03:04→23:50)
[2021-02-17] MEDS: Acetaminophen 325 MG TAB PO PRN (08:09)
[2021-02-17] MEDS: Enoxaparin Sodium 30 MG/0.3 ML SYRINGE SC SCH (08:10)
[2021-02-17] MEDS: Cefepime 1 GM in Sodium Chloride 0.9% 100 ML IVPB SCH ×2 (08:10→22:09)
[2021-02-17] MEDS: Aspirin 81 mg Enteric Coated Tablet PO SCH (08:10)
[2021-02-17] MEDS: Donepezil HCl 5 MG TAB PO SCH (08:10)
[2021-02-17] MEDS: Metoprolol Tartrate 100 MG TAB PO SCH ×2 (08:10→22:10)
[2021-02-17] MEDS: Vancomycin HCl 750 MG in Sodium Chloride 0.9% 250 ML 250 ML IVPB SCH (10:25)
[2021-02-17] MEDS ORDERED: Morphine 2 MG/ML VIAL SLOW IVP PRN (10:46)
[2021-02-17] MEDS ORDERED: Morphine 4 MG/ML VIAL SLOW IVP PRN (11:18)
[2021-02-18 08:49] LABS: Vancomycin, Trough 24.6 ug/mL
[2021-02-18] MEDS: Dextrose 5 %-0.45 % NaCl 1,000 ML IV SCH (08:56)
[2021-02-18] MEDS: Cefepime 1 GM in Sodium Chloride 0.9% 100 ML IVPB SCH (08:58)
[2021-02-18] MEDS: Enoxaparin Sodium 30 MG/0.3 ML SYRINGE SC SCH (08:58)
[2021-02-18] MEDS: Aspirin 81 mg Enteric Coated Tablet PO SCH (08:59)
[2021-02-18] MEDS: Donepezil HCl 5 MG TAB PO SCH (08:59)
[2021-02-18] MEDS: Metoprolol Tartrate 100 MG TAB PO SCH (09:00)
[2021-02-18] MEDS: Vancomycin HCl 750 MG in Sodium Chloride 0.9% 250 ML 250 ML IVPB SCH (09:15)
[2021-02-18] MEDS ORDERED: Vancomycin HCl 500 MG in Sodium Chloride 0.9% 100 ML IVPB SCH (12:00)
[2021-02-18] MEDS ORDERED: Morphine 10 MG/0.5 ML ORAL SYRINGE SL PRN (16:00)
[2021-02-18 17:03] VITALS: BP 92/60; TEMP 97.7
== END 2021-02-18 16:00 | disposition expired | DRG 871 ==
LOC: ERS 08:12 → SUATTDRO 08:12 → T4-A 10:29
PROVIDERS: ADMIT Internal Medicine; ATTEND Internal Medicine
PROC: 5A0945A Assistance with Respiratory Ventilation, 24-96 Consecutive Hours, High Flow/Velocity Cannula (ICD-10-PCS; principal; 2021-02-14)
PROC: 3E0G76Z Introduction of Nutritional Substance into Upper GI, Via Natural or Artificial Opening (ICD-10-PCS; 2021-02-15)
DX: A41.9 Sepsis, unspecified organism (principal); J69.0 Pneumonitis due to inhalation of food and vomit; G93.41 Metabolic encephalopathy; J96.21 Acute and chronic respiratory failure with hypoxia; I50.32 Chronic diastolic (congestive) heart failure; I48.20 Chronic atrial fibrillation, unspecified; N17.9 Acute kidney failure, unspecified; E87.2 Acidosis; I13.0 Hypertensive heart and chronic kidney disease with heart failure and stage 1 through stage 4 chronic kidney disease, or unspecified chronic kidney disease; E87.0 Hyperosmolality and hypernatremia; Z51.5 Encounter for palliative care; Z66 Do not resuscitate; Z20.822 Contact with and (suspected) exposure to COVID-19; E03.9 Hypothyroidism, unspecified; D50.9 Iron deficiency anemia, unspecified; G30.9 Alzheimer's disease, unspecified; F02.80 Dementia in other diseases classified elsewhere, unspecified severity, without behavioral disturbance, psychotic disturbance, mood disturbance, and anxiety; J45.909 Unspecified asthma, uncomplicated; N18.30 Chronic kidney disease, stage 3 unspecified; R13.12 Dysphagia, oropharyngeal phase; I73.9 Peripheral vascular disease, unspecified; Z79.899 Other long term (current) drug therapy; Z79.82 Long term (current) use of aspirin; Z79.810 Long term (current) use of selective estrogen receptor modulators (SERMs); Z95.0 Presence of cardiac pacemaker
CPT/HCPCS: 36415; 71045; 80048; 80053; 80202; 81001; 83605; 83880; 85025; 86140; 87040; 87086; 93923; 96365; 96366; 96375; J0692; J1650; J1956; J2270; J3370; J3490; J7050; U0002